=== PATIENT | male | born 1940 | race Caucasian/White ===

== ENCOUNTER → 2017-02-02 | Outpatient (CLI) | payer OTHER | END | disposition home or self-care (01) | LOC: C.LABSPEC 17:01 | PROVIDERS: ATTEND Urology | DX: C67.9 Malignant neoplasm of bladder, unspecified (principal) ==

== ENCOUNTER 2017-05-11 06:01 | Inpatient (IN) | payer OTHER, MEDICARE ==
[~2017-05-11] VITALS: Ht 180.3 cm; Wt 91.1 kg
[2017-05-11] VITALS (9 sets, daily range): BP systolic 132–147; BP diastolic 70–84; PULSE 62–79; TEMP 36.4–36.8; O2SAT 93–99; BMI 30.1
[2017-05-11] MEDS ORDERED: ALBUT/IPRATROP 3MG/0.5MG NEB 3 ML VIAL INH STA (06:13)
[2017-05-11] MEDS ORDERED: DEXTROSE 50% 50 ML SYR IV STA (06:24)
[2017-05-11] MEDS ORDERED: FUROSEMIDE 40 MG/4 ML VIAL IV STA (06:40)
--- NOTE | 2017-05-11 06:48 | EMERGENCY ROOM VISIT NOTE ---
History First contact with patient: 06:08 Chief Complaint: RESPIRATORY PROBLEMS Stated Complaint: UNABLE TO BREATHE,PAIN Nursing Triage Summary: Patient reports cough, shortness of breath, and fever. Patient was admitted to [facility] 1 week ago and diagnosed with Influenza B. Patient was discharged yesterday and was not happy. Patient has had a 'terrible night' . Patient reports he is confused which is not his normal. Patient has left leg amputation above the knee. Patient appears weak and lethargic. family report BSG in 60s at home. pt given milk to increase sugar. Right leg has all toes amputated and reports "they are still healing, but he is so full of fluid it is taking a long time". +3 pitting edema to foot and lower leg. Abdomen hard and distended. History of Present Illness The patient is a 76 year old male who presents to the Emergency Room for evaluation of respiratory distress. Patient with recent 1 week stay in [facility] secondary to Flu B discharged yesterday. notes tired at discharge with SHOB which continued worsening throughout the evening. Now with confusion, weakness, inability to breath and unable to get up. Drove here from [place] as wish second opinion. Patient denies chest pain, nausea, vomiting, abdominal pain, back pain. Long cardiac history with known CHF, multiple previous stents. No CABG. History of multiple abdominal surgeries, left AKA, right toe removals. Notes HTN, DLP, DMII, CKD, Afib (?). Admits poorly controlled DMII with BS 300s yesterday, though 60 at home this morning. No medications prior to arrival. Was reported treated with Tamiflu and IV fluids at [facility] per . Review of Systems See HPI for pertinent positives & negatives. A total of 10 systems reviewed and were otherwise negative. Past Medical/Surgical History Medical Problems: (1) CAD (coronary artery disease) (2) CKD (chronic kidney disease), stage III (3) Congestive heart failure (CHF) (4) Diabetes mellitus, type II (5) GERD (gastroesophageal reflux disease) (6) Gout (7) H/O renal calculi (8) History of MRSA infection (9) HLD (hyperlipidemia) (10) HTN (hypertension) (11) Hypothyroidism (12) Rheumatoid arthritis Surgical Problems: (1) History of appendectomy (2) Hx of cholecystectomy (3) Status post above knee amputation of left lower extremity (4) Status post amputation of toe of right foot (5) Status post lumbar spine surgery for decompression of spinal cord Social History Smoking Status: Former Smoker Current/Historical Medications Scheduled Allopurinol (Allopurinol), 2 TABS PO HS Aspirin (Aspirin Ec), 81 MG PO HS Atorvastatin (Lipitor), 80 MG PO DAILY Bumetanide (Bumetanide), 2 TABS PO BID Carvedilol (Carvedilol), 12.5 MG PO BID Cholecalciferol (Vitamin D3), 1 TAB PO DAILY Clopidogrel (Plavix), 75 MG PO DAILY Docusate Sodium (Docusate Sodium), 100 MG PO BID Fluticasone Propionate (Nasal) (Allergy Nasal [place] 24 Ho), 100 MCG NA QAM Hydralazine Hcl (Apresoline), 25 MG PO TID Insulin Human Isophan/Regular (Novolin 70/30), 80 UNITS SC BID Isosorbide Mononitrate (Isosorbide Mononitrate ER), 30 MG PO QAM Levothyroxine Sodium (Synthroid), 1 TAB PO DAILY Lisinopril (Lisinopril), 2.5 MG PO HS Magnesium Oxide (Mag-Ox), 400 MG PO DAILY Multivitamin (Multivitamin), 1 TAB PO DAILY Nitroglycerin (Nitrostat), 0.4 MG SL PRN Pantoprazole (Protonix), 40 MG PO BID Potassium Ext Rel (Klor-Con), 20 MEQ PO BID Prednisone (Prednisone), 5 MG PO BID Tamsulosin Hcl (Flomax), 0.4 MG PO DAILY Scheduled PRN Acetaminophen (Tylenol), 325 MG PO Q6H PRN for Pain Albuterol Sulf (Proventil 0.083% 2.5MG/3ML), 2.5 MG INH QID PRN for Shortness of Breath Oxycodone/Acetaminophen 5MG/325MG (Percocet 5MG/325MG), 1 TABLET PO Q6H PRN for Pain Physical Exam Vital Signs Date Time Temp Pulse Resp B/P (MAP) Pulse Ox O2 Delivery O2 Flow Rate FiO2 05/11/17 07:23 79 24 144/87 93 BiPAP 05/11/17 06:46 75 19 137/75 97 Room Air 05/11/17 06:39 79 95 35 05/11/17 06:27 90 Room Air 05/11/17 06:20 85 05/11/17 06:16 72 19 171/93 100 Non-Rebreather 15.0 05/11/17 06:14 90 Room Air 05/11/17 06:10 90 Room Air 05/11/17 06:03 37.2 82 26 179/88 93 Room Air Physical Exam GENERAL: Patient is severely ill appearing and in severe distress. HEENT: No acute trauma, normocephalic atraumatic, mucous membranes moist, no nasal congestion, no scleral icterus. NECK: No stridor, no adenopathy, no meningismus, trachea is midline. LUNGS: Dyspneic with diffuse wet crackles. Some mild wheezing at apexes noted. Minimal breath sounds at bases HEART: Regular rate and rhythm. No murmurs, rubs, gallops appreciated. ABDOMEN: Distant bowel sounds. Large abdomen, Soft/Nontender. Pitting edema lower abdomen. BACK: Pitting edema low back. No midline tenderness, no CVA tenderness EXTREMITIES: Edema bilateral hands and pitting edema right leg. Wrapped right foot. Left AKA. No cyanosis NEUROLOGIC: Awake but slow to answer questions and mild confusion, no acute motor or sensory deficits, no focal weakness, cranial nerves grossly intact. SKIN: No rash, no jaundice, no diaphoresis. Medical Decision & Procedures Laboratory Results Test 05/11/17 06:20 05/11/17 06:33 05/11/17 06:34 05/11/17 06:37 Influenza Type A Antigen Neg for Influ A (NEG) Influenza Type B Antigen POS for Influ B (NEG) Immature Granulocyte % (Auto) 0.7 % White Blood Count 9.34 K/uL (4.8-10.8) Red Blood Count 3.59 M/uL (4.7-6.1) Hemoglobin 10.0 g/dL (14.0-18.0) Hematocrit 30.9 % (42-52) Mean Corpuscular Volume 86.1 fL (80-100) Mean Corpuscular Hemoglobin 27.9 pg (25-34) Mean Corpuscular Hemoglobin Concent 32.4 g/dl (32-36) Platelet Count 202 K/uL (130-400) Mean Platelet Volume 10.2 fL (7.4-10.4) Neutrophils (%) (Auto) 64.5 % Lymphocytes (%) (Auto) 20.3 % Monocytes (%) (Auto) 9.9 % Eosinophils (%) (Auto) 4.4 % Basophils (%) (Auto) 0.2 % Neutrophils # (Auto) 6.02 K/uL (1.4-6.5) Lymphocytes # (Auto) 1.90 K/uL (1.2-3.4) Monocytes # (Auto) 0.92 K/uL (0.11-0.59) Eosinophils # (Auto) 0.41 K/uL (0-0.5) Basophils # (Auto) 0.02 K/uL (0-0.2) Immature Granulocyte # (Auto) 0.07 K/uL (0.00-0.02) Total Bilirubin 0.3 mg/dl (0.2-1) Direct Bilirubin < 0.1 mg/dl (0-0.2) Aspartate Amino Transf (AST/SGOT) 50 U/L (15-37) Alanine Aminotransferase (ALT/SGPT) 44 U/L (12-78) Alkaline Phosphatase 74 U/L (45-117) Total Creatine Kinase 499 U/L (39-308) Creatine Kinase MB 4.3 ng/ml (0.5-3.6) Creatine Kinase MB Ratio 0.9 (0-3.0) Pro-B-Type Natriuretic Peptide 2979 pg/ml (0-900) Total Protein 6.5 gm/dl (6.4-8.2) Albumin 2.1 gm/dl (3.4-5.0) Bedside Lactic Acid Venous 1.13 mmol/L (0.90-1.70) Bedside Hemoglobin 9.9 g/dl (14.0-18.0) Bedside Hematocrit 29 % (42-52) Bedside Sodium 137 mEq/L (135-144) Bedside Potassium 4.1 mEq/L (3.3-5.0) Bedside Chloride 104 mEq/L (101-112) Bedside Total CO2 24 mEq/l (24-31) Bedside Blood Urea Nitrogen 37 mg/dl (7-18) Bedside Creatinine 2.1 mg/dl (0.6-1.3) Bedside Glucose (other) 58 mg/dl (70-99) Bedside Ionized Calcium (Dev) 1.12 mmol/l (1.12-1.32) Test 05/11/17 06:42 05/11/17 07:05 05/11/17 07:37 Arterial Blood pH 7.40 (7.35-7.45) Arterial Blood Partial Pressure CO2 40 mmHg (35-46) Arterial Blood Partial Pressure O2 80 mm/Hg (80-95) Arterial Blood HCO3 24 mmol/L (19-24) Arterial Blood Oxygen Saturation 94.4 % (90-95) Arterial Blood Base Excess -0.5 mEq/L (-9-1.8) Arterial Blood Gas Delivery 35% Benja Test POS (POS) Urine Color YELLOW Urine Appearance CLOUDY (CLEAR) Urine pH 5.0 (4.5-7.5) Urine Specific [place] 1.017 (1.000-1.030) Urine Protein 2+ (NEG) Urine Glucose (UA) NEG (NEG) Urine Ketones TRACE (NEG) Urine Occult Blood TRACE (NEG) Urine Nitrite NEG (NEG) Urine Bilirubin NEG (NEG) Urine Urobilinogen NEG (NEG) Urine Leukocyte Esterase MODERATE (NEG) Urine WBC (Auto) >30 /hpf (0-5) Urine RBC (Auto) 0-4 /hpf (0-4) Urine Hyaline Casts (Auto) 1-5 /lpf (0-5) Urine Epithelial Cells (Auto) >30 /lpf (0-5) Urine Bacteria (Auto) NEG (NEG) Urine Renal Epithelial Cells /lpf (0-5) Urine Pathogenic Casts /lpf (0) Prothrombin Time 9.7 SECONDS (9.0-12.0) Prothromb Time International Ratio 0.9 (0.9-1.1) Date/Time Source Procedure Growth Status 05/11/17 07:05 Urine,Catheterized Urine Culture - Final NO GROWTH - LESS THAN 1,000 COLONIES/ML Complete Medications Administered Medications (Trade) Dose Ordered Sig/Jim Route Start Time Stop Time Status Last Admin Dose Admin Albuterol/ Ipratropium (Duoneb) 3 ml NOW STAT INH 05/11/17 06:13 05/11/17 06:14 DC 05/11/17 06:34 3 ML Dextrose (Dextrose 50% 50ML Syringe) 50 ml NOW STAT IV 05/11/17 06:24 05/11/17 06:25 DC 05/11/17 06:45 50 ML Furosemide (Lasix Inj) 40 mg NOW STAT IV 05/11/17 06:40 05/11/17 06:41 DC 05/11/17 06:47 40 MG Oseltamivir Phosphate (Tamiflu Cap) 75 mg NOW STAT PO 05/11/17 07:09 05/11/17 07:11 DC 05/11/17 07:21 75 MG Hydrocodone Bit/ Homatropine Methylb (Hycodan Syrup) 5 ml NOW STAT PO 05/11/17 07:28 05/11/17 07:29 DC 05/11/17 07:40 5 ML Medical Decision Differential: Sepsis, Infectious (UTI/Pneumonia/Meningitis/etc), Metabolic/ Electrolyte Abnormality, Cardiac, Dehydration, Anemia, Hepatic, Endocrine, Toxicologic, Neurologic, amongst other pathologies entertained. 76 yr old acutely ill appearing male arrives in acute respiratory distress and confused. Very poor access but nursing able to obtain left shoulder IV which works well currently. Immediately placed on Bipap given exam of CHF despite OK O2 sats on RA and patient with vast improvement in his breathing and comfort. Confusion improving with IV Dextrose. With CHF findings went ahead with IV lasix. Unfortunately we have somewhat limited history on this patient secondary to never having been her before and his primary care all being out in [place]. Cr 2.1 which from sound of it may be his baseline. Lactic acid wnl, no fevers, and WBC OK thus will hold off on empiric abx for the moment as not clear evidence of sepsis. Suspect much of this is fluid overload , likely secondary to recent admission. Head Trauma GCS Score: 14 Impression Primary Impression: Respiratory failure Additional Impression: Acute CHF Critical Care I have personally spent greater than 45 minutes of critical care time in the direct management of this patient. This was a life/limb threatening event. This includes time spent evaluating patient, direct bedside care, chart review, placing orders, interpretation of diagnostic studies, discussion with consultants, patient, and family members, as well as other required patient management activities. This 45 minutes is in excess of all separately billable procedures. Departure Information Referrals Arturo Hawthorne M.D. (PCP) Patient Instructions My [facility] Problem Qualifiers
[2017-05-11 06:51] LABS: ISTAT CREATININE 2.1 mg/dl (0.6-1.3); ISTAT IONIZED CALCIUM 1.12 mmol/l (1.12-1.32); ISTAT POTASSIUM 4.1 mEq/L (3.3-5.0)
--- NOTE | 2017-05-11 07:00 | DIAGNOSTIC IMAGING REPORT ---
CHEST ONE VIEW PORTABLE CLINICAL HISTORY: Fever and shortness of breath. COMPARISON STUDY: No previous studies for comparison. FINDINGS: Upper abdominal surgical clips are noted. Patient is rotated. No pneumothorax is noted. There is a possible trace right pleural effusion. Minimal bilateral infrahilar opacity likely reflects atelectasis or normal vessels. There is no lobar consolidation. There is mild interstitial thickening. IMPRESSION: 1. Mild nonspecific interstitial thickening. 2. Bilateral infrahilar opacities which likely reflects normal vessels or atelectasis although an infectious process could appear similar. Radiographic follow-up is recommended. Electronically signed by: Angelo De M.D. 05/11/2017 6:58 AM Dictated Date/Time: 05/11/2017 6:55 AM
[2017-05-11 07:08] LABS: BASO % 0.2 %; BASO ABS # 0.02 K/uL (0-0.2); EOS % 4.4 %; EOS ABS # 0.41 K/uL (0-0.5); HEMATOCRIT 30.9 % (42-52); IG# 0.07 K/uL (0.00-0.02); LYMPH % 20.3 %; MEAN CELL VOLUME 86.1 fL (80-100); MEAN CORPUSCULAR HEMOGLOBIN 27.9 pg (25-34); MEAN CORPUSCULAR HGB CONC 32.4 g/dl (32-36); MEAN PLATELET VOLUME 10.2 fL (7.4-10.4); MONO % 9.9 %; MONO ABS # 0.92 K/uL (0.11-0.59); NEUT % 64.5 %; NEUT ABS # 6.02 K/uL (1.4-6.5); NUCLEATED RED BLOOD CELL ABS 0.02 K/uL (0-0); PLATELET COUNT 202 K/uL (130-400); RED CELL DISTRIBUTION WIDTH CV 17.3 % (11.5-14.5); RED CELL DISTRIBUTION WIDTH SD 54.8 fL (36.4-46.3); WHITE BLOOD COUNT 9.34 K/uL (4.8-10.8)
[2017-05-11 07:09] LABS: INFLUENZA B ANTIGEN POS for Influ B (NEG)
[2017-05-11] MEDS ORDERED: OSELTAMIVIR PHOSPHATE 75 MG CAP PO STA (07:09)
[2017-05-11 07:26] LABS: ALBUMIN 2.1 gm/dl (3.4-5.0); ALT/SGPT 44 U/L (12-78); AST/SGOT 50 U/L (15-37); BLOOD UREA NITROGEN 32 mg/dl (7-18); CALCIUM 8.3 mg/dl (8.5-10.1); CARBON DIOXIDE 24 mmol/L (21-32); CREATININE 1.91 mg/dl (0.60-1.40); GLUCOSE 55 mg/dl (70-99); POTASSIUM 3.9 mmol/L (3.5-5.1); SODIUM 136 mmol/L (136-145)
[2017-05-11] MEDS ORDERED: HYDROCODONE/HOMATROPINE SYRUP 5MG/1.5MG 5ML UDP PO STA (07:28)
[2017-05-11 07:35] LABS: ALKALINE PHOSPHATASE 74 U/L (45-117); CKMB 4.3 ng/ml (0.5-3.6); TOTAL PROTEIN 6.5 gm/dl (6.4-8.2)
[2017-05-11 07:53] LABS: INR 0.9 (0.9-1.1)
--- NOTE | 2017-05-11 07:55 | History and Physical ---
History & Physical Date & Time of Service: May 11, 2017 at 07:55 Chief Complaint: short of breath, confused . Primary Care Physician: Arturo Hawthorne M.D. History of Present Illness Source: patient, family 76 YO male followed by Dr. Hawthorne for primary care and Dr. Koenig in [place] for Cardiology. History of ischemic heart disease, CHF, and other problems noted below. Admitted to [facility] about 1 week ago with influenza. Discharged to home yesterday. Very short of breath and confused during the night. Family brought him to ED this morning. BiPAP applied for ventilatory support. History was primarily obtained from pt's because of his condition in the ED. No apparent chest pain. No apparent fever. Occasional cough. No apparent nausea, vomiting, diarrhea. . Past Medical/Surgical History Chronic and Resolved Medical Problems: (1) CAD (coronary artery disease) Permanent Comment: S/p stenting in 2008, 2016. Follow[address] with [address] Michela Koenig in [place] Status: Chronic (2) CKD (chronic kidney disease), stage III Status: Chronic (3) Congestive heart failure (CHF) Status: Chronic (4) Diabetes mellitus, type II Permanent Comment: Hgb a1c of 8.7 on 05/04/17 Status: Chronic (5) GERD (gastroesophageal reflux disease) Status: Chronic (6) Gout Status: Chronic (7) H/O renal calculi Status: Chronic (8) History of MRSA infection Status: Chronic (9) HLD (hyperlipidemia) Status: Chronic (10) HTN (hypertension) Status: Chronic (11) Hypothyroidism Status: Chronic (12) Rheumatoid arthritis Status: Chronic Surgical Problems: (1) History of appendectomy Status: Chronic (2) Hx of cholecystectomy Status: Chronic (3) Status post above knee amputation of left lower extremity Permanent Comment: 2014 Status: Chronic (4) Status post amputation of toe of right foot Permanent Comment: 2015 Status: Chronic (5) Status post lumbar spine surgery for decompression of spinal cord Status: Chronic . Family History Diabetes mellitus MOTHER Social History Smoking Status: Former Smoker Alcohol Use: occasionally Allergies Coded Allergies: Levofloxacin (Verified Allergy, Mild, urticaria, 05/11/17) Cephalexin (Verified Allergy, Unknown, unknown, 05/11/17) Penicillins (Verified Allergy, Unknown, unknown, 05/11/17) Metoprolol (Verified Adverse Reaction, Intermediate, nightmares, 05/11/17) Home Medications Scheduled Allopurinol (Allopurinol), 2 TABS PO HS Aspirin (Aspirin Ec), 81 MG PO HS Atorvastatin (Lipitor), 80 MG PO DAILY Bumetanide (Bumetanide), 2 TABS PO BID Carvedilol (Carvedilol), 12.5 MG PO BID Cholecalciferol (Vitamin D3), 1 TAB PO DAILY Clopidogrel (Plavix), 75 MG PO DAILY Docusate Sodium (Docusate Sodium), 100 MG PO BID Fluticasone Propionate (Nasal) (Allergy Nasal [place] 24 Ho), 100 MCG NA QAM Hydralazine Hcl (Apresoline), 25 MG PO TID Insulin Human Isophan/Regular (Novolin 70/30), 80 UNITS SC BID Isosorbide Mononitrate (Isosorbide Mononitrate ER), 30 MG PO QAM Levothyroxine Sodium (Synthroid), 1 TAB PO DAILY Lisinopril (Lisinopril), 2.5 MG PO HS Magnesium Oxide (Mag-Ox), 400 MG PO DAILY Multivitamin (Multivitamin), 1 TAB PO DAILY Nitroglycerin (Nitrostat), 0.4 MG SL PRN Pantoprazole (Protonix), 40 MG PO BID Potassium Ext Rel (Klor-Con), 20 MEQ PO BID Prednisone (Prednisone), 5 MG PO BID Tamsulosin Hcl (Flomax), 0.4 MG PO DAILY Scheduled PRN Acetaminophen (Tylenol), 325 MG PO Q6H PRN for Pain Albuterol Sulf (Proventil 0.083% 2.5MG/3ML), 2.5 MG INH QID PRN for Shortness of Breath Oxycodone/Acetaminophen 5MG/325MG (Percocet 5MG/325MG), 1 TABLET PO Q6H PRN for Pain Review of Systems Unable to obtain complete / reliable review of systems due to patient's condition. . Physical Exam Vital Signs Date Time Temp Pulse Resp B/P (MAP) Pulse Ox O2 Delivery O2 Flow Rate FiO2 05/11/17 07:23 79 24 144/87 93 BiPAP 05/11/17 06:46 75 19 137/75 97 Room Air 05/11/17 06:39 79 95 35 05/11/17 06:27 90 Room Air 05/11/17 06:20 85 05/11/17 06:16 72 19 171/93 100 Non-Rebreather 15.0 05/11/17 06:14 90 Room Air 05/11/17 06:10 90 Room Air 05/11/17 06:03 37.2 82 26 179/88 93 Room Air General Appearance: + moderate distress, + obese Head: normocephalic, atraumatic Eyes: PERRL, EOMI, sclerae normal ENT: + pertinent finding (no thrush; wearing BiPAP facial mask) Neck: supple, no adenopathy, thyroid normal, trachea midline Respiratory/Chest: + respiratory distress, + rales, + rhonchi, + wheezing Cardiovascular: regular rate, rhythm, + systolic murmur (III/ sys murmur LSB + base), + pertinent finding (neck veins difficult to assess) Abdomen/GI: normal bowel sounds, non tender, soft, no organomegaly Extremities/Musculoskelatal: + pertinent finding (s/p left AKA; s/p right transmet ampuation; 3+ edema RLE with derm findings as noted below) Neurologic/Psych: + disoriented, + pertinent finding (PERRL, EOMI; moves all extremities) Skin: warm/dry, + pertinent finding (erythema and venous stasis ulcers right lower extremity) Lymphatic: no adenopathy (cervical ) Diagnostics Laboratory Results Results Past 24 Hours Test 05/11/17 06:19 05/11/17 06:20 05/11/17 06:33 05/11/17 06:34 Range/Units Bedside Glucose 60 70-99 mg/dl Influenza Type A Antigen Neg for Influ A NEG Influenza Type B Antigen POS for Influ B NEG White Blood Count 9.34 4.8-10.8 K/uL Red Blood Count 3.59 4.7-6.1 M/uL Hemoglobin 10.0 14.0-18.0 g/dL Hematocrit 30.9 42-52 % Mean Corpuscular Volume 86.1 80-100 fL Mean Corpuscular Hemoglobin 27.9 25-34 pg Mean Corpuscular Hemoglobin Concent 32.4 32-36 g/dl Platelet Count 202 130-400 K/uL Mean Platelet Volume 10.2 7.4-10.4 fL Neutrophils (%) (Auto) 64.5 % Lymphocytes (%) (Auto) 20.3 % Monocytes (%) (Auto) 9.9 % Eosinophils (%) (Auto) 4.4 % Basophils (%) (Auto) 0.2 % Neutrophils # (Auto) 6.02 1.4-6.5 K/uL Lymphocytes # (Auto) 1.90 1.2-3.4 K/uL Monocytes # (Auto) 0.92 0.11-0.59 K/uL Eosinophils # (Auto) 0.41 0-0.5 K/uL Basophils # (Auto) 0.02 0-0.2 K/uL RDW Standard Deviation 54.8 36.4-46.3 fL RDW Coefficient of Variation 17.3 11.5-14.5 % Immature Granulocyte % (Auto) 0.7 % Immature Granulocyte # (Auto) 0.07 0.00-0.02 K/uL Nucleated RBC Absolute Count (auto) 0.02 0-0 K/uL Nucleated Red Blood Cells % 0.3 % Sodium Level 136 136-145 mmol/L Potassium Level 3.9 3.5-5.1 mmol/L Chloride Level 105 98-107 mmol/L Carbon Dioxide Level 24 21-32 mmol/L Anion Gap 7.0 3-11 mmol/L Blood Urea Nitrogen 32 7-18 mg/dl Creatinine 1.91 0.60-1.40 mg/dl Est Creatinine Clear Calc Drug Dose 40.5 ml/min Estimated GFR () 39.1 Estimated GFR (Non- 33.8 BUN/Creatinine Ratio 16.8 10-20 Random Glucose 55 70-99 mg/dl Calcium Level 8.3 8.5-10.1 mg/dl Magnesium Level 2.5 1.8-2.4 mg/dl Total Bilirubin 0.3 0.2-1 mg/dl Direct Bilirubin < 0.1 0-0.2 mg/dl Aspartate Amino Transf (AST/SGOT) 50 15-37 U/L Alanine Aminotransferase (ALT/SGPT) 44 12-78 U/L Alkaline Phosphatase 74 45-117 U/L Total Creatine Kinase 499 39-308 U/L Creatine Kinase MB 4.3 0.5-3.6 ng/ml Creatine Kinase MB Ratio 0.9 0-3.0 Troponin I 0.060 0-0.045 ng/ml Pro-B-Type Natriuretic Peptide 2979 0-900 pg/ml Total Protein 6.5 6.4-8.2 gm/dl Albumin 2.1 3.4-5.0 gm/dl Bedside Lactic Acid Venous 1.13 0.90-1.70 mmol/L Test 05/11/17 06:37 05/11/17 06:42 05/11/17 07:05 05/11/17 07:37 Range/Units Bedside Hemoglobin 9.9 14.0-18.0 g/dl Bedside Hematocrit 29 42-52 % Bedside Sodium 137 135-144 mEq/L Bedside Potassium 4.1 3.3-5.0 mEq/L Bedside Chloride 104 101-112 mEq/L Bedside Total CO2 24 24-31 mEq/l Anion Gap 14.0 16-25 mmol/L Bedside Blood Urea Nitrogen 37 7-18 mg/dl Bedside Creatinine 2.1 0.6-1.3 mg/dl Bedside Glucose (other) 58 70-99 mg/dl Bedside Ionized Calcium (Dev) 1.12 1.12-1.32 mmol/l Arterial Blood pH 7.40 7.35-7.45 Arterial Blood Partial Pressure CO2 40 35-46 mmHg Arterial Blood Partial Pressure O2 80 80-95 mm/Hg Arterial Blood HCO3 24 19-24 mmol/L Arterial Blood Oxygen Saturation 94.4 90-95 % Arterial Blood Base Excess -0.5 -9-1.8 mEq/L Arterial Blood Gas Delivery 35% Benja Test POS POS Urine Color YELLOW Urine Appearance CLOUDY CLEAR Urine pH 5.0 4.5-7.5 Urine Specific [place] 1.017 1.000-1.030 Urine Protein 2+ NEG Urine Glucose (UA) NEG NEG Urine Ketones TRACE NEG Urine Occult Blood TRACE NEG Urine Nitrite NEG NEG Urine Bilirubin NEG NEG Urine Urobilinogen NEG NEG Urine Leukocyte Esterase MODERATE NEG Urine WBC (Auto) >30 0-5 /hpf Urine RBC (Auto) 0-4 0-4 /hpf Urine Hyaline Casts (Auto) 1-5 0-5 /lpf Urine Epithelial Cells (Auto) >30 0-5 /lpf Urine Bacteria (Auto) NEG NEG Urine Renal Epithelial Cells 0-5 /lpf Urine Pathogenic Casts 0 /lpf Prothrombin Time 9.7 9.0-12.0 SECONDS Prothromb Time International Ratio 0.9 0.9-1.1 Microbiology Results 05/11/17 Blood Culture, Received Pending 05/11/17 Blood Culture, Received Pending 05/11/17 Urine Culture, Received Pending Diagnostic Radiology Chest x-ray reviewed by the undersigned: cardiomegaly, pulmonary edema, no focal infiltrates . EKG EKG performed at 06:L10 reviewed and demonstrated probably 2nd degree heart block (Mobitz type 1) at 80 / minute, baseline artifact, no acute ST changes. . Impression Assessment and Plan CHF / PULMONARY EDEMA Exam and chest x-ray consistent with CHF. Check echo. Diurese. CORONARY ARTERY DISEASE History of ischemic heart disease, s/p coronary stents. No apparent anginal symptoms. EKG as noted above. Serum troponin slightly elevated (0.060). Troponin elevation may be secondary to CHF or pneumonia. Check serial troponins. Check echo. Continue aspirin, clopidogrel, carvedilol, nitrates, statin. ARRHYTHMIA EKG has baseline artifact, possible Mobitz type 1 heart block. Monitor on telemetry. Continue carvedilol with caution. Check f/u EKG. HYPERTENSION Hemodynamically stable. Continue carvedilol, lisinopril, hydralazine, nitrates. INFLUENZA B Diagnosed at [facility]. Awaiting records to review treatment there. CKD III History of CKD III. Serum creatinine = 1.91. Follow. DM TYPE 2 HIstory of DM type 2 on insulin 70/30. Random blood sugar in ED 60. Check Hgb A1C. Lantus / NovoLog per protocol. HYPOTHYROIDISM Check TSH. Continue levothyroxine.l DYSLIPIDEMIA Continue atorvastatin. GOUT Continue allopurinol. RA / CHRONIC STEROID THERAPY On prednisone for many years. Apparently instructed to stop prednisone when discharged yesterday. IV hydrocortisone x 1, then resume usual dose of prednisone. Additional hydrocortisone PRN for hemodynamic instability. VENOUS STASIS ULCERS RLE No apparent cellulitis. Local care / dressing changes. HISTORY MRSA Contact precautions. INCOMPLETE DATA Records from [facility] requested. RESUSCITATION STATUS Discussed with pt's . Patient would like resuscitation attempted in the event of a cardiopulmonary arrest if there is a reasonable chance of a meaningful recovery, but does not want prolonged extraordinary measures if prognosis is poor. Therefore, code status = "Level 1" (full resuscitation). VTE PROPHYLAXIS SQ enoxaparin. DISPOSITION To be determined. Medical follow-up with Dr. Vega. Cardiology follow-up with Dr. Koenig in [place]. . Resuscitation Status FULL RESUSCITATION VTE Prophylaxis Risk Level: Moderate Given or contraindicated: Enoxaparin (Lovenox)SQ
[2017-05-11] MEDS ORDERED: ACETAMINOPHEN 325 MG TAB PO PRN (08:00)
[2017-05-11] MEDS ORDERED: NITROGLYCERIN 0.4 MG SL PER TAB CHARGE SL PRN (08:00)
[2017-05-11] MEDS ORDERED: ALBINS/ INH (08:27)
[2017-05-11] MEDS ORDERED: LSN25 PO (08:27)
[2017-05-11] MEDS ORDERED: ACET-1311 PO (08:27)
[2017-05-11] MEDS ORDERED: PRED-301 PO (09:00)
[2017-05-11] MEDS ORDERED: LEVO25TA PO (09:00)
[2017-05-11] MEDS ORDERED: CLOP1TAB15 PO (09:00)
[2017-05-11] MEDS ORDERED: MULT-506 PO (09:00)
[2017-05-11] MEDS ORDERED: PANT40TA PO (09:00)
[2017-05-11] MEDS ORDERED: INSU70IN2 SC (09:00)
[2017-05-11] MEDS ORDERED: OXYC-57 PO (09:00)
[2017-05-11] MEDS ORDERED: TAMS0.4C38 PO (09:00)
[2017-05-11] MEDS ORDERED: CRG125 PO (09:00)
[2017-05-11] MEDS ORDERED: NTRGSL/4 SL (09:00)
[2017-05-11] MEDS ORDERED: FLUT50SP45 (09:00)
[2017-05-11] MEDS ORDERED: MAGN400T5 PO (09:00)
[2017-05-11] MEDS ORDERED: ONDA4TAB46 PO (09:00)
[2017-05-11] MEDS ORDERED: APR25 PO (09:00)
[2017-05-11] MEDS ORDERED: IMDSR/30 PO (09:00)
[2017-05-11] MEDS ORDERED: ATOR-26 PO (09:00)
[2017-05-11] MEDS ORDERED: CHOL20007 PO (09:00)
[2017-05-11] MEDS ORDERED: DOCU1TAB6 PO (09:00)
[2017-05-11] MEDS ORDERED: ASPI81TA28 PO (09:00)
[2017-05-11] MEDS ORDERED: SYN50 PO (09:35)
[2017-05-11] MEDS ORDERED: BMX1 PO (09:35)
[2017-05-11] MEDS ORDERED: CHOL1000 PO (09:35)
[2017-05-11] MEDS ORDERED: ALL100 PO (09:35)
[2017-05-11] MEDS ORDERED: GLUCOSE 10 TABS/TUBE PO PRN (09:45)
[2017-05-11] MEDS ORDERED: GLUCAGON FOR INJ 1 MG VIAL SQ PRN (09:45)
[2017-05-11] MEDS ORDERED: GLUCOSE 40% GEL 15 GM TUBE PO PRN (09:45)
[2017-05-11] MEDS ORDERED: DEXTROSE 50% 50 ML SYR IV PRN (09:45)
[2017-05-11] MEDS ORDERED: INFLUENZA VACCINE HIGH DOSE 65+ 0.5 ML SYR IM. ONE (10:15)
[2017-05-11] MEDS ORDERED: INFLUENZA ADMINISTRATION CHARGE ONE (10:15)
[2017-05-11] MEDS ORDERED: POTA20TA16 PO (10:30)
--- NOTE | 2017-05-11 12:03 | DIAGNOSTIC IMAGING REPORT ---
CHEST ONE VIEW PORTABLE HISTORY: picc placement COMPARISON: Chest 05/11 at 18. FINDINGS: The tip of the right PICC is curled within a branch of the right axillary vein. This should be repositioned. There are low lung volumes. The heart is mildly enlarged. No pneumothorax. No pleural effusions. Mild diffuse interstitial thickening, unchanged. No new focal lung consolidations. IMPRESSION: The right PICC is curled within a branch of the right axillary vein. This should be repositioned. Electronically signed by: Cory Li M.D. 05/11/2017 12:02 PM Dictated Date/Time: 05/11/2017 12:00 PM
[2017-05-11] MEDS ORDERED: LEVALBUTEROL 0.63MG/3 ML NEB INH PRN (13:00)
[2017-05-11] MEDS ORDERED: HYDROCORTISONE IV 50 MG in SYRINGE 0 ML IV ONE (13:00)
[2017-05-11] MEDS ORDERED: PERFLUTREN LIPID MICROSPHERE (DEFINITY) IV ONE (14:23)
[2017-05-11] MEDS: LEVALBUTEROL 1.25MG/3ML NEB INH SCH ×2 (14:59→20:12)
--- NOTE | 2017-05-11 16:30 | ECHOCARDIOGRAM REPORT ---
*NOTICE TO RECEIVING DEMOCRAT AGENCY This information is strictly Confidential and protected under [place] law. [place] law prohibits you from making any further disclosure of this information unless further disclosure is expressly permitted by the written consent of the person to whom it pertains or is authorized by law. A general authorization for the release of medical or other information is not sufficient for this purpose. Hospital accepts no responsibility if the information is made available to any other person, INCLUDING THE PATIENT. Interpretation Summary * Name: OZZEI CHA Study Date: 05/11/2017 01:34 PM BP: 124/80 mmHg * Patient Location: .MSICU\S\E110\S\1 HR: 73 * : 1940 (M/d/yyyy) Gender: Male Height: 71 in * Age: 76 yrs Ethnicity: CA Weight: 216 lb * Ordering Physician: Mohamud Aceves * Referring Physician: Self, Referred * Performed By: Uziel Caruso RCS * * Reason For Study: CHF * BSA: 2.2 m2 * The study was technically limited. * The study was technically difficult. * -- Conclusions -- * Ejection Fraction = 55-60%. * There is mild concentric left ventricular hypertrophy. * The base and mid inferior wall is hypokinetic. * The aortic valve is poorly visualized and moderately calcified. * Moderate to severe valvular aortic stenosis. * There is mild mitral regurgitation. * There is mild tricuspid regurgitation. Procedure Details * A complete two-dimensional transthoracic echocardiogram was performed (2D, M-mode, Doppler and color flow Doppler). * There were technical limitations due to patient'spoor positioning * A contrast injection of Definity was performed to improve assessment of LV function. * Contrast was injected into an intravenous site in the right arm. * One vial of Definity ultrasound contrast was diluted in normal saline to a total volume of 10 ml. A total of '1' ml of solution was administered during imaging. * Lot # [id number] of Definity utilized for procedure. * Expiration date . * The attending nurse who injected the contrast agent was Rena Balderas RN. Left Ventricle * The left ventricle is normal in size. * There is no thrombus. * There is mild concentric left ventricular hypertrophy. * Left ventricular systolic function is normal. * Ejection Fraction = 55-60%. * The base and mid inferior wall is hypokinetic. Right Ventricle * The right ventricle is normal size. * The right ventricular systolic function is normal as assessed by tricuspid annular plane systolic excursion (TAPSE) (normal >1.5 cm). Atria * The left atrium is moderately dilated. * Right atrial size is normal. * There is no evidence of atrial septal defect, but resolution does not allow assessment for a patent foramen ovale. Mitral Valve * The mitral valve is normal. * There is no mitral valve stenosis. * There is mild mitral regurgitation. Tricuspid Valve * The tricuspid valve is normal. * There is no tricuspid stenosis. * There is mild tricuspid regurgitation. * Doppler findings do not suggest pulmonary hypertension. Aortic Valve * The aortic valve is poorly visualized and moderately calcified. * Moderate to severe valvular aortic stenosis. * There is no significant aortic regurgitation. Pulmonic Valve * The pulmonary valve is not well seen, but the Doppler examination is normal without significant regurgitation or stenosis. Great Vessels * The aortic root and proximal ascending aorta are normal sized. Pericardium/Pleural * There is no pericardial effusion. Great Vessels * Normal inferior vena cava diameter and respiratory variation suggests normal central venous pressure. Left Ventricular Diastolic Function * Diastolic dysfunction, Grade II (pseudonormalization pattern). MMode 2D Measurements and Calculations IVSd 1.2 cm IVSs 1.5 cm LVIDd 6.2 cm LVIDs 3.1 cm LVPWd 1.2 cm LVPWs 1.5 cm IVS/LVPW 1.0 FS 50.0 % EDV(Teich) 195.6 ml ESV(Teich) 38.2 ml EF(Teich) 80.5 % EDV(cubed) 241.0 ml ESV(cubed) 30.0 ml EF(cubed) 87.5 % % IVS thick 31.3 % % LVPW thick 29.6 % LV mass(C)d 320.4 grams LV mass(C)dI 147.0 grams/m\S\2 LV mass(C)s 168.9 grams LV mass(C)sI 77.5 grams/m\S\2 SV(Teich) 157.4 ml SI(Teich) 72.3 ml/m\S\2 SV(cubed) 210.9 ml SI(cubed) 96.8 ml/m\S\2 Ao root diam 3.7 cm Ao root area 10.5 cm\S\2 LA dimension 5.0 cm asc Aorta Diam 3.5 cm LA/Ao 1.4 LVOT diam 2.2 cm LVOT area 4.0 cm\S\2 EDV(MOD-sp4) 150.0 ml ESV(MOD-sp4) 82.0 ml EF(MOD-sp4) 45.3 % LVAd ap2 45.6 cm\S\2 LVLd ap2 9.6 cm EDV(MOD-sp2) 179.9 ml EDV(sp2-el) 184.5 ml LVAs ap2 28.4 cm\S\2 LVLs ap2 8.4 cm ESV(MOD-sp2) 79.4 ml ESV(sp2-el) 81.1 ml EF(MOD-sp2) 55.9 % EF(sp2-el) 56.0 % SV(MOD-sp4) 68.0 ml SI(MOD-sp4) 31.2 ml/m\S\2 SV(MOD-sp2) 100.5 ml SI(MOD-sp2) 46.1 ml/m\S\2 SV(sp2-el) 103.4 ml SI(sp2-el) 47.4 ml/m\S\2 Doppler Measurements and Calculations MV E max jeff 96.9 cm/sec MV A max jeff 85.9 cm/sec MV E/A 1.1 MV P1/2t max jeff 105.7 cm/sec MV P1/2t 75.5 msec MVA(P1/2t) 2.9 cm\S\2 MV dec slope 410.0 cm/sec\S\2 MV dec time 0.23 sec Ao V2 max 334.6 cm/sec Ao max PG 44.8 mmHg Ao max PG (full) 41.7 mmHg Ao V2 mean 231.4 cm/sec Ao mean PG 25.0 mmHg Ao mean PG (full) 23.3 mmHg Ao V2 VTI 71.1 cm BAILEY(I,A) 1.2 cm\S\2 BAILEY(I,D) 1.2 cm\S\2 BAILEY(V,A) 1.1 cm\S\2 BAILEY(V,D) 1.1 cm\S\2 LV V1 max PG 3.2 mmHg LV V1 mean PG 1.7 mmHg LV V1 max 89.1 cm/sec LV V1 mean 58.7 cm/sec LV V1 VTI 20.6 cm SV(Ao) 744.8 ml SI(Ao) 341.8 ml/m\S\2 SV(LVOT) 81.9 ml SI(LVOT) 37.6 ml/m\S\2 PA V2 max 161.8 cm/sec PA max PG 11.0 mmHg TR max jeff 252.0 cm/sec
[2017-05-11] MEDS: INSULIN ASPART 100 UNITS/ML 3 ML PEN SC SCH ×2 (17:23→21:22)
[2017-05-11 19:06] LABS: CALCIUM 8.1 mg/dl (8.5-10.1); CREATININE 1.74 mg/dl (0.60-1.40); POTASSIUM 4.7 mmol/L (3.5-5.1)
[2017-05-11] MEDS ORDERED: FUROSEMIDE INJ 40 MG in SYRINGE 0 ML IV ONE (19:45)
[2017-05-11] MEDS: PANTOprazole SOD 40 MG TAB PO SCH (20:07)
[2017-05-11] MEDS: POTASSIUM CHLORIDE 20 MEQ TABCR PO SCH (20:08)
[2017-05-11] MEDS: ALLOPURINOL 100 MG TAB PO SCH (20:08)
[2017-05-11] MEDS: LISINOPRIL 2.5 MG TAB PO SCH (20:08)
[2017-05-11] MEDS: ASPIRIN 81 MG ECTAB PO SCH (20:09)
[2017-05-11] MEDS: CARVEDILOL 12.5 MG TAB PO SCH (20:09)
[2017-05-11] MEDS: DOCUSATE SODIUM 100 MG CAP PO SCH (20:09)
[2017-05-11] MEDS: ENOXAPARIN 40 MG/0.4 ML SYR SC SCH (21:23)
[2017-05-11] MEDS: INSULIN GLARGINE SOLOSTAR 100 UNITS/ML 3 ML PEN SC SCH (21:23)
[2017-05-12] VITALS (10 sets, daily range): BP systolic 103–138; BP diastolic 57–72; PULSE 59–71; TEMP 36.5–37.1; O2SAT 93–97; Ht 180.3 cm; Wt 91.1 kg
[2017-05-12] MEDS ORDERED: FUROSEMIDE INJ 80 MG in SYRINGE 0 ML IV ONE ×2 (00:45→11:00)
[2017-05-12] MEDS: LEVALBUTEROL 1.25MG/3ML NEB INH SCH ×4 (02:18→18:55)
[2017-05-12 06:09] LABS: HEMATOCRIT 28.4 % (42-52); HEMOGLOBIN 9.2 g/dL (14.0-18.0); MEAN CELL VOLUME 86.1 fL (80-100); MEAN CORPUSCULAR HEMOGLOBIN 27.9 pg (25-34); MEAN CORPUSCULAR HGB CONC 32.4 g/dl (32-36); MEAN PLATELET VOLUME 10.2 fL (7.4-10.4); NUCLEATED RED BLOOD CELL ABS 0.02 K/uL (0-0); PLATELET COUNT 194 K/uL (130-400); RED CELL DISTRIBUTION WIDTH CV 17.2 % (11.5-14.5); RED CELL DISTRIBUTION WIDTH SD 54.4 fL (36.4-46.3); WHITE BLOOD COUNT 7.69 K/uL (4.8-10.8)
[2017-05-12] MEDS: LEVOTHYROXINE 50 MCG TAB PO SCH (06:36)
[2017-05-12 06:46] LABS: CALCIUM 7.9 mg/dl (8.5-10.1); CREATININE 1.74 mg/dl (0.60-1.40); POTASSIUM 4.7 mmol/L (3.5-5.1)
--- NOTE | 2017-05-12 07:50 | DIAGNOSTIC IMAGING REPORT ---
CHEST ONE VIEW PORTABLE CLINICAL HISTORY: CHF dyspnea COMPARISON STUDY: 05/11/2017 FINDINGS: Comparison made to prior study 05/11/2017. Findings of congestive failure and superimposed inflammatory change left retrocardiac region are slightly improved. Diaphragms are slightly improved visibility. There has been removal of the PICC catheter in the right axillary vein. IMPRESSION: Slight improvement in the appearance of the chest with persistent findings of mild congestive failure and resolving left basilar minimal infiltrative change The above report was generated using voice recognition software. It may contain grammatical, syntax or spelling errors. Electronically signed by: Van Moreno M.D. 05/12/2017 7:49 AM Dictated Date/Time: 05/12/2017 7:40 AM
[2017-05-12] MEDS: DOCUSATE SODIUM 100 MG CAP PO SCH ×2 (08:17→20:33)
[2017-05-12] MEDS: POTASSIUM CHLORIDE 20 MEQ TABCR PO SCH ×2 (08:18→20:34)
[2017-05-12] MEDS: TAMSULOSIN HCL 0.4 MG CAP PO SCH (08:18)
[2017-05-12] MEDS: CARVEDILOL 12.5 MG TAB PO SCH ×2 (08:18→20:33)
[2017-05-12] MEDS: MAGNESIUM OXIDE 400 MG TAB PO SCH (08:19)
[2017-05-12] MEDS: ATORVASTATIN 40 MG TAB PO SCH (08:19)
[2017-05-12] MEDS: CLOPIDOGREL BISULFATE 75 MG TAB PO SCH (08:19)
[2017-05-12] MEDS: FLUTICASONE PROPIONATE NA SPR 16 GM BTL SCH (08:21)
[2017-05-12] MEDS: INSULIN ASPART 100 UNITS/ML 3 ML PEN SC SCH ×4 (08:28→20:39)
[2017-05-12] MEDS: INSULIN GLARGINE SOLOSTAR 100 UNITS/ML 3 ML PEN SC SCH ×2 (08:29→20:41)
[2017-05-12] MEDS: NITROGLYCERIN 2% OINTMENT 30GM TUBE EXT SCH ×4 (08:30→20:45)
[2017-05-12] MEDS: PANTOprazole SOD 40 MG TAB PO SCH ×2 (08:32→20:35)
[2017-05-12] MEDS: OXYCODONE/ACETAMINOPHEN 5-325 TAB PO PRN ×2 (08:34→20:37)
--- NOTE | 2017-05-12 09:09 | Clinical Documentation Query ---
EFRAÍN Andre : CLINICAL DOCUMENTATION QUERIES QUERY 1 OF 2 Patient admitted for evaluation of respiratory distress. Documentation includes a known history of CHF, not otherwise specified. Echocardiogram demonstrated an LVEF of 55-60%. As appropriate, please explicitly state the acuity and type of CHF experienced by your patient. Thank you. In your clinical opinion is this patient being managed for: ABDOMEN 2VIEW W/PA CHEST RTN CLINICAL HISTORY: abdominal distended/Nausea pain COMPARISON STUDY: 05/13/2017 FINDINGS: Increased pulmonary vasculature. Diaphragms are smooth. Heart is top limits normal in size. Bowel pattern is nonobstructive. Degenerative changes of the lumbar spine as well as hips bilaterally. IMPRESSION: Nonobstructive bowel pattern. 2. Developing congestive heart failure The above report was generated using voice recognition software. It may contain grammatical, syntax or spelling errors. Electronically signed by: Van Moreno M.D. (x) Acute on chronic diastolic CHF ( ) Not Agree ( ) Other explanation of clinical findings (Please Explain) ( ) Unable to determine (Please Define) ( ) Need to Discuss The medical record reflects the following clinical findings, treatment, and risk factors. Clinical Indicators: Shortness of breath, hypoxemia, tachypnea, diffuse crackles, wheezing, respiratory distress Treatment: Supplemental O2, IV Lasix, labs, Bi-PAP Risk Factors: Age, infection, influenza QUERY 2 OF 2 Patient presented with confusion, weakness, and lethargy. Assessment included "Awake but slow to answer questions and mild confusion" and most notably, "Confusion improving with IV Dextrose". POC and serum glucose on admission of 55/58/60 mg/dl. As appropriate, consider capture of this clinical information as suggested below. Thank you. In your clinical opinion is this patient being managed for: ( ) Metabolic encephalopathy secondary to influenza and/or hypoglycemia, POA, resolved ( ) Not Agree ( ) Other explanation of clinical findings (Please Explain) ( ) Unable to determine (Please Define) ( ) Need to Discuss The medical record reflects the following clinical findings, treatment, and risk factors. Clinical Indicators: As above Treatment: IVF, labs, treatment of hypoglycemia and infection Risk Factors: Hypoglycemia, influenza Please clarify and document your clinical opinion in the progress notes and discharge summary. Terms such as "probable", "suspected", "likely", "questionable", "possible", or "still to be ruled out" are acceptable. IF IN AGREEMENT, YOU MUST DOCUMENT ABOVE DIAGNOSTIC STATEMENT IN DAILY PROGRESS NOTES AND DISCHARGE SUMMARY. This document is not part of the patient's record. Thank You, Mario Suarez, RN [phone]
[2017-05-12 09:12] LABS: HEMOGLOBIN A1C 8.7 % (4.5-5.6)
--- NOTE | 2017-05-12 11:08 | Progress Note ---
Medicine Progress Note Date & Time of Visit: May 12, 2017 at 10:16. Subjective Pt was seen and examined Lying in bed with no distress Pt said that he is feeling better today He said that he did not remember much from yesterday He said that he is breathing better Denies any chest pain, palpitation, dizziness and fever Objective Last 8 Hrs Date Time Temp Pulse Resp B/P (MAP) Pulse Ox O2 Delivery O2 Flow Rate FiO2 05/12/17 04:00 Nasal Cannula 2.0 05/12/17 03:55 36.5 71 16 128/69 (88) 93 Nasal Cannula 2.0 05/12/17 02:18 65 21 96 Nasal Cannula 2.0 35 Physical Exam: General- No acute distress Head- atraumatic Eyes- PERRL, EOMI ENT- oropharynx clear Neck- supple, no JVD Lungs- clear to auscultation Heart- regular rhythm; +murmur Abdomen- normal bowel sounds, soft Extremities- No calf tenderness, S/p Left AKA, +RLE edema Neuro- alert, oriented x 3; PERRL, EOMI Skin- warm & dry Laboratory Results: Last 24 Hours Test 05/11/17 12:28 05/11/17 12:40 05/11/17 15:48 05/11/17 18:26 Bedside Glucose 115 mg/dl 162 mg/dl Troponin I 0.055 ng/ml 0.043 ng/ml Sodium Level 135 mmol/L Potassium Level 4.7 mmol/L Chloride Level 104 mmol/L Carbon Dioxide Level 21 mmol/L Anion Gap 10.0 mmol/L Blood Urea Nitrogen 29 mg/dl Creatinine 1.74 mg/dl Est Creatinine Clear Calc Drug Dose 44.4 ml/min Estimated GFR () 43.8 Estimated GFR (Non- 37.8 BUN/Creatinine Ratio 16.9 Random Glucose 190 mg/dl Calcium Level 8.1 mg/dl Magnesium Level 2.2 mg/dl Test 05/11/17 21:16 05/12/17 01:03 05/12/17 05:41 Bedside Glucose 211 mg/dl Magnesium Level 2.2 mg/dl White Blood Count 7.69 K/uL Red Blood Count 3.30 M/uL Hemoglobin 9.2 g/dL Hematocrit 28.4 % Mean Corpuscular Volume 86.1 fL Mean Corpuscular Hemoglobin 27.9 pg Mean Corpuscular Hemoglobin Concent 32.4 g/dl RDW Standard Deviation 54.4 fL RDW Coefficient of Variation 17.2 % Platelet Count 194 K/uL Mean Platelet Volume 10.2 fL Nucleated RBC Absolute Count (auto) 0.02 K/uL Nucleated Red Blood Cells % 0.3 % Sodium Level 138 mmol/L Potassium Level 4.7 mmol/L Chloride Level 105 mmol/L Carbon Dioxide Level 21 mmol/L Anion Gap 12.0 mmol/L Blood Urea Nitrogen 34 mg/dl Creatinine 1.74 mg/dl Est Creatinine Clear Calc Drug Dose 45.5 ml/min Estimated GFR () 43.8 Estimated GFR (Non- 37.8 BUN/Creatinine Ratio 19.4 Random Glucose 241 mg/dl Estimated Average Glucose 203 mg/dl Hemoglobin A1c 8.7 % Calcium Level 7.9 mg/dl Triglycerides Level 205 mg/dl Cholesterol Level 136 mg/dl HDL Cholesterol 22 mg/dl LDL Cholesterol, Calculated 73 mg/dl VLDL Cholesterol, Calculated 41 mg/dl Cholesterol/HDL Ratio 6.2 Date/Time Source Procedure Growth Status 05/11/17 12:30 Nasal MRSA DNA Surveillance Screen - Final Specimen Negative for MRSA by DNA Probe Complete Assessment & Plan CHF / PULMONARY EDEMA Present with SOB on admission Was recently admitted in [place] for weakness and dehydration. His Bumex was held due to dehydration and received IVF. Chest x-ray on admission consistent with CHF. Elevated pro -BNP Received IV Lasix (about 120mg in the last 18hrs. Clinically improved significantly Consider additional lasix Cardiology consult ECHO showed * Ejection Fraction = 55-60%. * There is mild concentric left ventricular hypertrophy. * The base and mid inferior wall is hypokinetic. * The aortic valve is poorly visualized and moderately calcified. * Moderate to severe valvular aortic stenosis. * There is mild mitral regurgitation. * There is mild tricuspid regurgitation. CORONARY ARTERY DISEASE Denies any chest pain Serum troponin peak to 0.060 now trending down to normal, possible related to CHF Recent ECHO showed base and mid inferior wall is hypokinetic. ECHO done at [place] last weeks showed normal left ventricle wall motion and wall thickness with normal EF Continue aspirin, clopidogrel, carvedilol, nitrates, statin. Continue monitor in tele ARRHYTHMIA EKG showed possible Mobitz type 1 heart block. Continue monitor on telemetry. On carvedilol Will discuss EKG finding with Cardiology HYPERTENSION BP stable Continue carvedilol, lisinopril, hydralazine, nitrates. INFLUENZA B Was treating at [place] last week with Tamiflu Continue droplet precaution Stable CKD III Creatine baseline as per discharge Summary from [place] btw 1.8 to 2.2 I called his PCP office his last creatine back in February was 1.5 Creatine on admission 1.91 that improved today to 1.7 Continue avoiding nephrotoxic agents WEAKNESS Due to acute illness Urine cx and blood cx pending PT/OT Fall precaution DM TYPE 2 Recent Hba1c 8.7 On insulin sliding scale and lantus Continue monitor BS HYPOTHYROIDISM Continue levothyroxine. DYSLIPIDEMIA LDL 73 Continue atorvastatin. GOUT Continue allopurinol. RA / CHRONIC STEROID THERAPY Has been on chronic prednisone for many years. Apparently instructed to stop prednisone when discharged at [place] Received Hydrocortisone x1 Continue prednisone VENOUS STASIS ULCERS RLE No apparent cellulitis. Local care / dressing changes. HISTORY MRSA Contact precautions. RESUSCITATION STATUS FULL CODE VTE PROPHYLAXIS SQ enoxaparin. DISPOSITION Will discharge once medically stable Follow up with PCP at [facility]. Current Inpatient Medications: Current Inpatient Medications Medications (Trade) Dose Ordered Sig/Jim Route Start Time Stop Time Status Last Admin Dose Admin Enoxaparin Sodium (Lovenox Inj) 40 mg Q24H SC 05/11/17 22:00 06/10/17 21:59 05/11/17 21:23 40 MG Acetaminophen (Tylenol Tab) 650 mg Q4H PRN PO 05/11/17 08:00 06/10/17 07:59 Nitroglycerin (Nitrostat Tab) 0.4 mg UD PRN SL 05/11/17 08:00 06/10/17 07:59 Insulin Glargine (Lantus Solostar Pen) For BSG <110, hold yao... Q12 SC 05/11/17 21:00 06/10/17 20:59 05/12/17 08:29 17 UNITS Insulin Aspart (novoLOG ASPART) SLIDING SCALE If C... ACHS SC 05/11/17 16:00 06/10/17 15:59 05/12/17 08:28 5 UNITS Glucose (Glucose 40% Gel) 15-30 GRAMS 15 GRAMS... UD PRN PO 05/11/17 09:45 06/10/17 09:44 Glucose (Glucose Chew Tab) 4-8 Tablets 4 Tabl... UD PRN PO 05/11/17 09:45 06/10/17 09:44 Dextrose (Dextrose 50% 50ML Syringe) 25-50ML OF 50% DW IV FOR... UD PRN IV 05/11/17 09:45 06/10/17 09:44 Glucagon (Glucagon Inj) 1 mg UD PRN SQ 05/11/17 09:45 06/10/17 09:44 Allopurinol (Zyloprim Tab) 200 mg HS PO 05/11/17 21:00 06/10/17 20:59 05/11/17 20:08 200 MG Aspirin (Ecotrin Tab) 81 mg HS PO 05/11/17 21:00 06/10/17 20:59 05/11/17 20:09 81 MG Atorvastatin Calcium (Lipitor Tab) 80 mg DAILY PO 05/12/17 09:00 06/11/17 08:59 05/12/17 08:19 80 MG Carvedilol (Coreg Tab) 12.5 mg BID PO 05/11/17 21:00 06/10/17 20:59 05/12/17 08:18 12.5 MG Clopidogrel Bisulfate (plAVix TAB) 75 mg DAILY PO 05/12/17 09:00 06/11/17 08:59 05/12/17 08:19 75 MG Fluticasone Propionate (Flonase Nasal [place]) 1 sprays QAM NA 05/12/17 09:00 06/11/17 08:59 05/12/17 08:21 1 SPRAYS Hydralazine HCl (Apresoline Tab) 25 mg TID PO 05/11/17 14:00 06/10/17 13:59 05/12/17 08:17 25 MG Levothyroxine Sodium (Synthroid Tab) 50 mcg DAILYBB PO 05/12/17 06:00 06/11/17 05:59 05/12/17 06:36 50 MCG Lisinopril (Zestril Tab) 2.5 mg HS PO 05/11/17 21:00 06/10/17 20:59 05/11/17 20:08 2.5 MG Magnesium Oxide (Mag-Ox Tab) 400 mg DAILY PO 05/12/17 09:00 06/11/17 08:59 2/13/18 08:19 400 MG Oxycodone/ Acetaminophen (Percocet 5-325mg Tab) 1 tab Q6H PRN PO 05/11/17 13:00 05/25/17 12:59 05/12/17 08:34 1 TAB Pantoprazole Sodium (Protonix Tab) 40 mg BID PO 05/11/17 21:00 06/10/17 20:59 05/12/17 08:32 40 MG Potassium Chloride (Klor-Con Tab) 20 meq BID PO 05/11/17 21:00 06/10/17 20:59 05/12/17 08:18 20 MEQ Prednisone (PredniSONE TAB) 5 mg BID PO 05/11/17 21:00 06/10/17 20:59 05/12/17 08:19 5 MG Tamsulosin HCl (Flomax Cap) 0.4 mg DAILY PO 05/12/17 09:00 06/11/17 08:59 05/12/17 08:18 0.4 MG Docusate Sodium (coLACE CAP) 100 mg BID PO 05/11/17 21:00 06/10/17 20:59 05/12/17 08:17 100 MG Levalbuterol (Xopenex 1.25MG/ 3ML Neb) 1.25 mg Q6R INH 05/11/17 15:00 06/10/17 14:59 05/12/17 08:00 1.25 MG Levalbuterol (Xopenex 0.63 Mg/ 3 Ml Neb) 0.63 mg Q2H PRN INH 05/11/17 13:00 06/10/17 12:59 Heparin Sodium (Porcine) (Heparin 10 Unit/ ml 5 ml Flush) 5 ml PRN PRN FLUSH 05/11/17 13:45 06/10/17 13:44 Nitroglycerin (Nitroglycerin 2% Oint) 1 inch Q6H EXT 05/12/17 08:30 06/11/17 08:29
--- NOTE | 2017-05-12 13:59 | CARDIOLOGY CONSULTATION ---
DATE OF CONSULTATION: 05/12/2017 REFERRING PHYSICIAN: Dr. Mohamud Aceves. REASON FOR CONSULTATION: Abnormal echocardiogram. CHIEF COMPLAINT ON ADMISSION: Shortness of breath. HISTORY OF PRESENT ILLNESS: Mr. Mcarthur is a 76-year-old gentleman who is unknown to the [facility], presents to the Emergency Department on 05/12/17 with shortness of breath. Recently hospitalized in [place] for acute influenza. Complex cardiovascular issues listed below. The patient reported progressive shortness of breath as well as confusion during the night on 03/10/2018. He came to the Emergency Department and found to be hypoxic. BiPAP was applied for ventilatory support. He is on BiPAP for the majority of the day on 03/10/2018. He received 2 doses of intravenous diuretic therapy due to acute decompensated heart failure. The patient diuresed approximately 1600 mL over the past 24 hours. Per nursing sacral edema improved. Respiratory status improved currently. He is off BiPAP. Chest x-ray demonstrates interstitial thickening. The patient reports dyspnea with minimal exertion. Denies chest pain or palpitations. Telemetry demonstrates sinus rhythm, sinus arrhythmia, Mobitz type 1 second degree AV block versus blocked PACs. ECG confirms the same. The patient is currently resting comfortably. No fever or chills. Significant cough noted with minimal sputum production. The patient offers no other complaints at this time. REVIEW OF SYSTEMS: The pertinent positives noted above, all significant for left lower extremity amputation as well as right-sided transmetatarsal amputation. Comprehensive 10-system review is otherwise negative. PAST MEDICAL HISTORY: 1. Coronary artery disease with myocardial infarction and intervention to undisclosed vessel in 2008 and NSTEMI in 2016 with LAD intervention at that time as well. 2. PVD with left AKA, right-sided transmetatarsal amputation. 3. Hypertension. 4. Diabetes. 5. Paroxysmal atrial fibrillation. 6. Chronic kidney disease. 7. Dyslipidemia. 8. Peptic ulcer disease. 9. Recent influenza B infection and hospitalization. 10. Moderate to severe aortic stenosis. 11. Ischemic cardiomyopathy. 12. Hypothyroidism. 13. Rheumatoid arthritis. 14. MRSA infection. 15. Renal calculi. 16. GERD. PAST SURGICAL HISTORY: 1. Coronary intervention in 2008 to undisclosed vessel. 2. Complex LAD stenting in August 2016. 3. Left-sided above knee amputation. 4. Right sided transmetatarsal amputation. 5. Appendectomy. 6. Cholecystectomy. 7. Lumbar spinal surgery for decompression. FAMILY HISTORY: Negative for premature CAD or sudden cardiac ; however, noncontributory given the patient's advanced age. SOCIAL HISTORY: Former tobacco abuse, quit nearly 30 years ago. Denies alcohol or drug use. ALLERGIES: 1. LEVOFLOXACIN. 2. CEPHALEXIN. 3. PENICILLIN. 4. METOPROLOL. HOME MEDICATIONS: 1. Allopurinol 2 tabs at bedtime. 2. Aspirin 81 mg daily. 3. Plavix 75 mg daily. 4. Lipitor 80 mg daily. 5. Bumex 2 mg twice daily. 6. Carvedilol 12.5 mg twice daily. 7. Colace twice daily. 8. Hydralazine 25 mg t.i.d. 9. Sliding scale insulin. 10. Novolin 70/30 at 80 units subQ b.i.d. 11. Imdur 30 mg daily. 12. Synthroid daily. 13. Lisinopril 2.5 mg at bedtime. 14. Magnesium oxide 400 mg daily. 15. Multivitamin daily. 16. Nitrostat daily as needed. 17. Potassium chloride 20 mEq twice daily. 18. Prednisone 5 mg b.i.d. 19. Flomax 0.4 mg daily. 20. Tylenol as needed. 21. Albuterol inhaler as needed. 22. Percocet as needed. EKG demonstrates sinus rhythm with sinus arrhythmia, second-degree AV block, Mobitz type 1. LABORATORY DATA: Peak troponin 0.60. Sodium 138, potassium 4.7, chloride 105, CO2 of 20, BUN is 34, and creatinine is 1.74. White blood cell count 7.69, hemoglobin is 9.2, and platelet count is 194. ABG on admission 7.40/40/80/24/94.4% on 35% FiO2. INR 0.9. Urinalysis, moderate leukocyte esterase. Influenza screen: Positive for type B. PHYSICAL EXAMINATION: VITAL SIGNS: Temperature is 36.5 degrees centigrade, pulse 71 beats per minute and regular, respiratory rate is 16 breaths per minute, blood pressure 120/69 and SaO2 is 93% on 2 liters nasal cannula. GENERAL: NAD, chronically ill, awake, alert and oriented x3. THROAT: His mucous membranes are dry. No scleral icterus. Conjunctivae pink. NECK: Supple. Elevated JVD. No HJR. No carotid bruit. HEART: Regular with a 2-3/6 late peaking systolic ejection murmur heard best at the right second intercostal space without radiation. LUNGS: Demonstrate scant crackles at the bases bilaterally. Mild end expiratory wheezing noted. ABDOMEN: Soft, obese, and nontender. No rebound or guarding. Normal bowel sounds. EXTREMITIES: Left-sided AKA, right-sided transmetatarsal amputation, 2+ pedal, pretibial, right-sided femoral edema on exam. NEUROLOGIC: Demonstrates no focal deficit. FINAL IMPRESSION: 1. Complex 76-year-old male admitted with progressive dyspnea on exertion secondary to influenza and acute decompensated heart failure in the setting of moderate to severe aortic stenosis. The patient improved with diuretic therapy. 2. Chronic complex coronary artery disease with a history of prior stenting to LAD as well as undisclosed vessel. Per discussion with the patient, it appears that there is residual coronary artery disease that was not intervened upon in August; however, I did not have details of his catheterization. 3. History of ischemic cardiomyopathy with an ejection fraction reported at 39% at time of non-ST elevation myocardial infarction in August 2016. Repeat echocardiogram performed in [place] demonstrated improvement of LV function. His repeat echocardiogram here as well demonstrates normal LV systolic function with mild basal inferior hypokinesis. 4. 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 5. Hypertension -- controlled. 6. Chronic kidney disease with baseline creatinine running 1.8 to 2.3 per review of records. 7. Dyslipidemia, tolerating high dose statin. 8. Peripheral venous disease, status post amputation as noted above. 9. Diabetes type 2, uncontrolled per most recent hemoglobin A1c, 8.7%. 10. Chart history of paroxysmal atrial fibrillation - the patient is in sinus rhythm with Mobitz type 1 and possible blocked premature atrial contractions at this time. 11. History of peptic ulcer disease. 12. Anemia. PLAN AND RECOMMENDATIONS: Recommend diuretic therapy, Lasix 80 mg will be given x1 now. We will follow fluid balance, daily weight as well as renal function and electrolytes closely. Continue dual antiplatelet therapy for a minimum of 1 year post-PCI (August 2016). The patient will also continue high dose statin, hydralazine, and topical nitrates. We will hold low dose ANNE MARIE inhibitor during active diuresis. The patient will be transitioned back to isosorbide mononitrate at the time of discharge. No indication for intravenous anticoagulation at this time. I will continue to follow the patient during hospitalization. Thank you for allowing me to participate in the care of your patient. Please note approximately 40 minutes of critical care time spent in reviewing records, direct evaluation of the patient, formulating plan of care as well as ordering medications and reviewing lab studies.
[2017-05-12] MEDS ORDERED: NURSING VERBAL MED ORDER ONE (16:15)
[2017-05-12] MEDS: ASPIRIN 81 MG ECTAB PO SCH (20:34)
[2017-05-12] MEDS: ALLOPURINOL 100 MG TAB PO SCH (20:36)
[2017-05-12] MEDS: LISINOPRIL 2.5 MG TAB PO SCH (20:36)
[2017-05-12] MEDS: ENOXAPARIN 40 MG/0.4 ML SYR SC SCH (20:42)
[2017-05-13] VITALS (9 sets, daily range): BP systolic 104–159; BP diastolic 59–80; PULSE 58–94; TEMP 36.5–36.7; O2SAT 93–96
[2017-05-13] MEDS: LEVALBUTEROL 1.25MG/3ML NEB INH SCH ×4 (02:07→19:51)
[2017-05-13] MEDS: LEVOTHYROXINE 50 MCG TAB PO SCH (06:21)
[2017-05-13 06:53] LABS: CREATININE 1.71 mg/dl (0.60-1.40)
--- NOTE | 2017-05-13 07:21 | DIAGNOSTIC IMAGING REPORT ---
CHEST ONE VIEW PORTABLE HISTORY: Short of breath. CHF COMPARISON: Chest 05/12/2017. FINDINGS: There are low lung volumes. The heart remains borderline enlarged. Interstitial and vascular thickening has slightly progressed. Trace right pleural effusion, unchanged. No pneumothorax. IMPRESSION: Slight progression of the mild congestive change. Electronically signed by: Cory Li M.D. 05/13/2017 7:19 AM Dictated Date/Time: 05/13/2017 7:19 AM
[2017-05-13] MEDS: FLUTICASONE PROPIONATE NA SPR 16 GM BTL SCH (08:00)
[2017-05-13] MEDS: CLOPIDOGREL BISULFATE 75 MG TAB PO SCH (08:00)
[2017-05-13] MEDS: ATORVASTATIN 40 MG TAB PO SCH (08:00)
[2017-05-13] MEDS: CARVEDILOL 12.5 MG TAB PO SCH ×2 (08:00→19:52)
[2017-05-13] MEDS: MAGNESIUM OXIDE 400 MG TAB PO SCH (08:00)
[2017-05-13] MEDS: TAMSULOSIN HCL 0.4 MG CAP PO SCH (08:00)
[2017-05-13] MEDS: PANTOprazole SOD 40 MG TAB PO SCH ×2 (08:00→19:53)
[2017-05-13] MEDS: DOCUSATE SODIUM 100 MG CAP PO SCH ×2 (08:00→19:52)
[2017-05-13] MEDS: INSULIN ASPART 100 UNITS/ML 3 ML PEN SC SCH ×5 (08:04→23:41)
[2017-05-13] MEDS: INSULIN GLARGINE SOLOSTAR 100 UNITS/ML 3 ML PEN SC SCH (08:05)
[2017-05-13] MEDS: NITROGLYCERIN 2% OINTMENT 30GM TUBE EXT SCH ×3 (08:06→19:51)
[2017-05-13] MEDS: POTASSIUM CHLORIDE 20 MEQ TABCR PO SCH (08:07)
[2017-05-13] MEDS ORDERED: NURSING VERBAL MED ORDER ONE (09:45)
[2017-05-13] MEDS ORDERED: FUROSEMIDE INJ 80 MG in SYRINGE 0 ML IV ONE (10:30)
[2017-05-13] MEDS: OXYCODONE/ACETAMINOPHEN 5-325 TAB PO PRN (11:10)
[2017-05-13] MEDS ORDERED: PHARMACY GLYCEMIC MGMT CONSULT PRN (11:30)
--- NOTE | 2017-05-13 12:33 | Cardiology Follow-Up ---
Subjective General Date of Service: May 13, 2017. Pt evaluation today including: conversation w/ patient, physical exam, chart review, lab review, review of studies, review of inpatient medication list History of Present Illness The patient is a 76 year old male seen in follow-up. States he feels cold today. No fevers recorded. Denies chest pain. Dyspnea with exertion and cough noted. No orthopnea or PND. Right lower extremity edema unchanged. Allergies Coded Allergies: Levofloxacin (Verified Allergy, Mild, urticaria, 05/11/17) Cephalexin (Verified Allergy, Unknown, unknown, 05/11/17) Penicillins (Verified Allergy, Unknown, unknown, 05/11/17) Metoprolol (Verified Adverse Reaction, Intermediate, nightmares, 05/11/17) Social History Smoking Status: Former Smoker Hx Tobacco Use In Past Year?: No Hx Alcohol Use - Type And Amou: No Hx Substance Use - Type And Am: No Problem List Medical Problems: (1) Acute CHF Status: Acute (2) Respiratory failure Status: Acute Review of Systems Respiratory: + cough, + dyspnea on exertion, No sputum, No wheezing, No shortness of breath, No dyspnea at rest, No hemoptysis Cardiac: + edema, No chest pain, No orthopnea, No PND, No claudication, No palpitations Physical Exam Vital Signs Last Vital Signs Documentation Date Time Temp Pulse Resp B/P (MAP) Pulse Ox O2 Delivery O2 Flow Rate FiO2 05/13/17 12:25 76 20 127/59 (81) 93 Room Air 05/13/17 07:04 2.0 05/12/17 23:00 36.6 05/12/17 02:18 35 Physical Exam Constitutional: General Apperance: overweight Level of Distress: chronically ill Head: atraumatic Lungs: Auscultation: expiratory wheezing, rhonchi Cardiovascular: Heart Auscultation: RRR, normal S1, normal S2, III/ ELISE Peripheral Pulses: Radial Pulse: normal on the left, normal on the right Abdomen: Inspection & Palpation: soft, non-distended, no tenderness, guarding & rebound Extremities: no cyanosis, edema (2+RLE edema), pertinent finding (left AKA, right sided transmetatarsal amputation) Neurologic: Gait & Station: pertinent finding (no focal motor deficit.) Cranial Nerves: grossly intact Assessment and Plan Assessment and Plan FINAL IMPRESSION: 1. Dyspnea on exertion secondary to influenza and acute decompensated heart failure in the setting of moderate to severe aortic stenosis. 2. Chronic complex coronary artery disease with a history of prior stenting to LAD as well as undisclosed vessel. Per discussion with the patient, it appears that there is residual coronary artery disease that was not intervened upon in August; however, I do not have details of his catheterization. 3. History of ischemic cardiomyopathy with an ejection fraction reported at 39% at time of non-ST elevation myocardial infarction in August 2016. Repeat echocardiogram performed in [place] demonstrated improvement of LV function. His repeat echocardiogram here as well demonstrates normal LV systolic function with mild basal inferior hypokinesis. 4. Moderate to severe aortic stenosis 5. Hypertension -- controlled. 6. Chronic kidney disease - baseline creatinine running 1.8 to 2.3 per 7. Dyslipidemia, tolerating high dose statin. 8. Peripheral venous disease, status post amputation as noted above. 9. Diabetes type 2, uncontrolled per most recent hemoglobin A1c, 8.7%. 10. Chart history of paroxysmal atrial fibrillation - the patient is in sinus rhythm with Mobitz type 1 and possible blocked premature atrial contractions at this time. 11. History of peptic ulcer disease. 12. Anemia. PLAN AND RECOMMENDATIONS: Lasix 80mg IV today. Follow fluid balance, renal function, electrolytes closely. Continue dual antiplatelet therapy for a minimum of 1 year post-PCI (August 2016) . The patient will also continue high dose statin, hydralazine, and topical nitrates. Hold low dose ANNE MARIE inhibitor during active diuresis with plans to restart prior to discharge. Laboratory Results Last 24 Hours Test 05/12/17 16:10 05/12/17 20:23 05/13/17 05:48 05/13/17 11:13 Bedside Glucose 313 mg/dl 321 mg/dl 311 mg/dl Sodium Level 135 mmol/L Potassium Level 5.0 mmol/L Chloride Level 103 mmol/L Carbon Dioxide Level 25 mmol/L Anion Gap 7.0 mmol/L Blood Urea Nitrogen 37 mg/dl Creatinine 1.71 mg/dl Est Creatinine Clear Calc Drug Dose 46.2 ml/min Estimated GFR () 44.7 Estimated GFR (Non- 38.6 BUN/Creatinine Ratio 21.4 Random Glucose 328 mg/dl Calcium Level 8.0 mg/dl Magnesium Level 2.2 mg/dl Beta-Hydroxybutyric Acid 3.95 mg/dL Thyroid Stimulating Hormone (TSH) 1.850 uIu/ml
--- NOTE | 2017-05-13 13:09 | Pharmacy Progress Note ---
Glycemic Control Intl Consult Date of Service May 13, 2017. Scope Glycemic Pharmacist consulted by Dr Irving on 05/13/17 for glycemic control and to write orders per [facility] inpatient glycemic control protocol Objective Weight (Kilograms): 102.400 Accuchecks BSG (last 24hrs): Test 05/12/17 16:10 05/12/17 20:23 05/13/17 05:48 05/13/17 11:13 Bedside Glucose 313 mg/dl (70-99) 321 mg/dl (70-99) 311 mg/dl (70-99) Random Glucose 328 mg/dl (70-99) Laboratory Data (last 24hrs) Test 05/13/17 05:48 Anion Gap 7.0 mmol/L BUN/Creatinine Ratio 21.4 Blood Urea Nitrogen 37 mg/dl Creatinine 1.71 mg/dl Potassium Level 5.0 mmol/L Sodium Level 135 mmol/L HbA1c Test 05/12/17 05:41 Hemoglobin A1c 8.7 % (4.5-5.6) H Recent Pertinent Medications Outpatient Anti-diabetic Regimen: * novolin 70/30 80 units BID * A1c = 8.7 % 05/12/17 The patient is currently receiving: * Basal insulin: Lantus 17/3 units every 12 hours * Correctional Insulin: Novolog Correction per scale ACHS Goal Range: Low 140 mg/dL - High 180 mg/dL Correction Factor: 25 mg/dL/unit * Prandial insulin: Per carb ratio of 1 unit per 8 grams CHO consumed Risk Factors for Insulin Resistance: * Steroids:prednisone 5mg BID (home dose) * Infection: recent influenza infection * Pressors: * IVF: * Recent Surgery * Diet: clear liquids, now AHA/T2DM * Mechanical Ventilation: Assessment & Plan ASSESSMENT: * Patient was mildly hypoglycemic on admission but since has had sugars into the two and three hundreds despite lantus scale. Using the patient's outpatient regimen of Novolin 70/30 80 units BID, ~40% of that total daily dose would equate to ~ 30 units BID lantus. I will lower the goal range and tighten the CF for lunchtime and give a larger, earlier dose of lantus at dinner time. I placed a tentative lantus scale on hold starting tomorrow morning pending response to increased novolog and lantus today. Patient continues on home dose of prednisone 5mg BID and was started on a solid diet today. PLAN FOR INPATIENT GLYCEMIC CONTROL: * Holding outpatient oral diabetes medications * Basal insulin with LANTUS 30 units SQX 1 @ 1700, then as per scale 2/15 AM * Correctional Insulin with NOVOLOG / REGULAR per scale ACHS or Q6hrs while NPO * Goal Range: Low 110 mg/dL - High 140 mg/dL * Correction Factor: 20 mg/dL/unit * Nutritional / Prandial insulin per carb ratio of 1 unit per 8 grams CHO consumed * Please note that the plan above was derived based on current level of insulin resistance and hospital stress. These recommendations are appropriate for inpatient admission only. Plan of care upon discharge will need to be reassessed to avoid potential outpatient hypo/hyperglycemia. Thank you.
[2017-05-13] MEDS ORDERED: INSULIN GLARGINE SOLOSTAR 100 UNITS/ML 3 ML PEN SC ONE (17:00)
[2017-05-13] MEDS: COLLAGENASE OINT 30 GM TUBE EXT SCH (17:07)
--- NOTE | 2017-05-13 18:22 | Progress Note ---
Medicine Progress Note Date & Time of Visit: May 13, 2017 at 10:18. Subjective Pt was seen and examined Lying in bed with no distress Pt said that he is breathing feels much better Denies any chest pain, palpitation and SOB Objective Last 8 Hrs Date Time Temp Pulse Resp B/P (MAP) Pulse Ox O2 Delivery O2 Flow Rate FiO2 05/13/17 16:00 36.5 58 20 125/67 (86) 93 Room Air 05/13/17 16:00 Room Air 05/13/17 14:23 72 16 95 Room Air 05/13/17 12:25 76 20 127/59 (81) 93 Room Air 05/13/17 12:00 Room Air Physical Exam: General- No acute distress Head- atraumatic Eyes- PERRL, EOMI ENT- oropharynx clear Neck- supple, no JVD Lungs- clear to auscultation Heart- regular rhythm; +murmur Abdomen- normal bowel sounds, soft Extremities- No calf tenderness, S/p Left AKA, +RLE edema Neuro- alert, oriented x 3; PERRL, EOMI Skin- warm & dry Laboratory Results: Last 24 Hours Test 05/12/17 20:23 05/13/17 05:48 05/13/17 11:13 05/13/17 16:34 Bedside Glucose 321 mg/dl 311 mg/dl 261 mg/dl Sodium Level 135 mmol/L Potassium Level 5.0 mmol/L Chloride Level 103 mmol/L Carbon Dioxide Level 25 mmol/L Anion Gap 7.0 mmol/L Blood Urea Nitrogen 37 mg/dl Creatinine 1.71 mg/dl Est Creatinine Clear Calc Drug Dose 46.2 ml/min Estimated GFR () 44.7 Estimated GFR (Non- 38.6 BUN/Creatinine Ratio 21.4 Random Glucose 328 mg/dl Calcium Level 8.0 mg/dl Magnesium Level 2.2 mg/dl Beta-Hydroxybutyric Acid 3.95 mg/dL Thyroid Stimulating Hormone (TSH) 1.850 uIu/ml Assessment & Plan CHF / PULMONARY EDEMA Present with SOB on admission Was recently admitted in [place] for weakness and dehydration. His Bumex was held due to dehydration and received IVF. Chest x-ray on admission consistent with CHF. Elevated pro -BNP Received Lasix 80mg today Clinically improved significantly Will monitor BMP closely If creatine stable will dose for additional lasix tomorrow after lab. Cardiology consult ECHO showed * Ejection Fraction = 55-60%. * There is mild concentric left ventricular hypertrophy. * The base and mid inferior wall is hypokinetic. * The aortic valve is poorly visualized and moderately calcified. * Moderate to severe valvular aortic stenosis. * There is mild mitral regurgitation. * There is mild tricuspid regurgitation. CORONARY ARTERY DISEASE Denies any chest pain Serum troponin peak to 0.060 now trending down to normal, possible related to CHF Recent ECHO showed base and mid inferior wall is hypokinetic. ECHO done at [place] last weeks showed normal left ventricle wall motion and wall thickness with normal EF Continue aspirin, clopidogrel, carvedilol, nitrates, statin. Continue monitor in tele ARRHYTHMIA EKG showed possible Mobitz type 1 heart block. Continue monitor on telemetry. On carvedilol Will discuss EKG finding with Cardiology HYPERTENSION BP stable Continue carvedilol, lisinopril, hydralazine, nitrates. INFLUENZA B Was treating at [place] last week with Tamiflu Continue droplet precaution Stable CKD III Creatine baseline as per discharge Summary from [place] btw 1.8 to 2.2 I called his PCP office his last creatine back in February was 1.5 Creatine on admission 1.91 Creatine remains 1.7 Continue avoiding nephrotoxic agents Monitor BMP WEAKNESS Due to acute illness Urine cx no growth blood cx pending PT/OT Fall precaution DM TYPE 2 Recent Hba1c 8.7 On insulin sliding scale and lantus Pharmacy consulted for glycemic management Continue monitor BS HYPOTHYROIDISM Continue levothyroxine. DYSLIPIDEMIA LDL 73 Continue atorvastatin. GOUT Continue allopurinol. RA / CHRONIC STEROID THERAPY Has been on chronic prednisone for many years. Apparently instructed to stop prednisone when discharged at [place] Received Hydrocortisone x1 Continue prednisone VENOUS STASIS ULCERS RLE No apparent cellulitis. Local care / dressing changes. HISTORY MRSA Contact precautions. RESUSCITATION STATUS FULL CODE VTE PROPHYLAXIS SQ enoxaparin. DISPOSITION Will discharge once medically stable Follow up with PCP at [facility]. Current Inpatient Medications: Current Inpatient Medications Medications (Trade) Dose Ordered Sig/Jim Route Start Time Stop Time Status Last Admin Dose Admin Enoxaparin Sodium (Lovenox Inj) 40 mg Q24H SC 05/11/17 22:00 06/10/17 21:59 05/12/17 20:42 40 MG Acetaminophen (Tylenol Tab) 650 mg Q4H PRN PO 2/12/18 08:00 06/10/17 07:59 Nitroglycerin (Nitrostat Tab) 0.4 mg UD PRN SL 05/11/17 08:00 06/10/17 07:59 Insulin Aspart (novoLOG ASPART) SLIDING SCALE If C... ACHS SC 05/11/17 16:00 06/10/17 15:59 05/13/17 17:06 11 UNITS Glucose (Glucose 40% Gel) 15-30 GRAMS 15 GRAMS... UD PRN PO 05/11/17 09:45 06/10/17 09:44 Glucose (Glucose Chew Tab) 4-8 Tablets 4 Tabl... UD PRN PO 05/11/17 09:45 06/10/17 09:44 Dextrose (Dextrose 50% 50ML Syringe) 25-50ML OF 50% DW IV FOR... UD PRN IV 05/11/17 09:45 06/10/17 09:44 Glucagon (Glucagon Inj) 1 mg UD PRN SQ 05/11/17 09:45 06/10/17 09:44 Allopurinol (Zyloprim Tab) 200 mg HS PO 05/11/17 21:00 06/10/17 20:59 05/12/17 20:36 200 MG Aspirin (Ecotrin Tab) 81 mg HS PO 05/11/17 21:00 06/10/17 20:59 05/12/17 20:34 81 MG Atorvastatin Calcium (Lipitor Tab) 80 mg DAILY PO 05/12/17 09:00 06/11/17 08:59 05/13/17 08:00 80 MG Carvedilol (Coreg Tab) 12.5 mg BID PO 05/11/17 21:00 06/10/17 20:59 05/13/17 08:00 12.5 MG Clopidogrel Bisulfate (plAVix TAB) 75 mg DAILY PO 05/12/17 09:00 06/11/17 08:59 05/13/17 08:00 75 MG Fluticasone Propionate (Flonase Nasal [place]) 1 sprays QAM NA 05/12/17 09:00 06/11/17 08:59 05/13/17 08:00 1 SPRAYS Hydralazine HCl (Apresoline Tab) 25 mg TID PO 05/11/17 14:00 3/14/18 13:59 05/13/17 13:37 25 MG Levothyroxine Sodium (Synthroid Tab) 50 mcg DAILYBB PO 05/12/17 06:00 06/11/17 05:59 05/13/17 06:21 50 MCG Lisinopril (Zestril Tab) 2.5 mg HS PO 05/11/17 21:00 06/10/17 20:59 Future Hold 05/12/17 20:36 2.5 MG Magnesium Oxide (Mag-Ox Tab) 400 mg DAILY PO 05/12/17 09:00 06/11/17 08:59 05/13/17 08:00 400 MG Oxycodone/ Acetaminophen (Percocet 5-325mg Tab) 1 tab Q6H PRN PO 05/11/17 13:00 05/25/17 12:59 05/13/17 11:10 1 TAB Pantoprazole Sodium (Protonix Tab) 40 mg BID PO 05/11/17 21:00 06/10/17 20:59 05/13/17 08:00 40 MG Potassium Chloride (Klor-Con Tab) 20 meq BID PO 05/11/17 21:00 06/10/17 20:59 Future Hold 05/12/17 20:34 20 MEQ Prednisone (PredniSONE TAB) 5 mg BID PO 05/11/17 21:00 06/10/17 20:59 05/13/17 08:00 5 MG Tamsulosin HCl (Flomax Cap) 0.4 mg DAILY PO 05/12/17 09:00 06/11/17 08:59 05/13/17 08:00 0.4 MG Docusate Sodium (coLACE CAP) 100 mg BID PO 05/11/17 21:00 06/10/17 20:59 05/13/17 08:00 100 MG Levalbuterol (Xopenex 1.25MG/ 3ML Neb) 1.25 mg Q6R INH 05/11/17 15:00 06/10/17 14:59 05/13/17 14:20 1.25 MG Levalbuterol (Xopenex 0.63 Mg/ 3 Ml Neb) 0.63 mg Q2H PRN INH 05/11/17 13:00 06/10/17 12:59 Heparin Sodium (Porcine) (Heparin 10 Unit/ ml 5 ml Flush) 5 ml PRN PRN FLUSH 05/11/17 13:45 06/10/17 13:44 Nitroglycerin (Nitroglycerin 2% Oint) 1 inch Q6H EXT 05/12/17 08:30 06/11/17 08:29 05/13/17 13:38 1 INCH Collagenase (Santyl Oint) 1 appln DAILY EXT 05/13/17 09:00 06/12/17 08:59 05/13/17 17:07 1 APPLN Miscellaneous Information (Consult Glycemic Management Pharmacy) 1 ea UD PRN N/A 05/13/17 11:30 06/12/17 11:29 Insulin Glargine (Lantus Solostar Pen) Q12 SC 05/14/17 09:00 06/13/17 08:59 Future Hold Insulin Aspart (novoLOG ASPART) SLIDING SCALE If C... TODAY@0000,0400 SC 05/14/17 00:00 05/14/17 05:00
[2017-05-13] MEDS: ASPIRIN 81 MG ECTAB PO SCH (19:52)
[2017-05-13] MEDS: ALLOPURINOL 100 MG TAB PO SCH (19:53)
[2017-05-13] MEDS: ENOXAPARIN 40 MG/0.4 ML SYR SC SCH (19:54)
[2017-05-14] VITALS (11 sets, daily range): BP systolic 140–167; BP diastolic 65–85; PULSE 66–98; TEMP 36.3–36.9; O2SAT 92–97
[2017-05-14] MEDS: LEVALBUTEROL 1.25MG/3ML NEB INH SCH ×4 (02:00→19:44)
[2017-05-14] MEDS: NITROGLYCERIN 2% OINTMENT 30GM TUBE EXT SCH ×4 (02:25→20:46)
[2017-05-14] MEDS: INSULIN ASPART 100 UNITS/ML 3 ML PEN SC SCH ×5 (04:05→20:50)
[2017-05-14] MEDS: LEVOTHYROXINE 50 MCG TAB PO SCH (05:51)
[2017-05-14 06:10] LABS: CALCIUM 8.2 mg/dl (8.5-10.1); CREATININE 1.47 mg/dl (0.60-1.40)
[2017-05-14] MEDS: PROCHLORPERAZINE INJ 5 MG in SYRINGE 4 ML IV PRN (07:36)
[2017-05-14] MEDS: COLLAGENASE OINT 30 GM TUBE EXT SCH (08:46)
[2017-05-14] MEDS: FLUTICASONE PROPIONATE NA SPR 16 GM BTL SCH (08:46)
[2017-05-14] MEDS: DOCUSATE SODIUM 100 MG CAP PO SCH ×2 (08:47→20:47)
[2017-05-14] MEDS: ATORVASTATIN 40 MG TAB PO SCH (08:47)
[2017-05-14] MEDS: CLOPIDOGREL BISULFATE 75 MG TAB PO SCH (08:47)
[2017-05-14] MEDS: CARVEDILOL 12.5 MG TAB PO SCH ×2 (08:47→20:46)
[2017-05-14] MEDS: TAMSULOSIN HCL 0.4 MG CAP PO SCH (08:47)
[2017-05-14] MEDS: MAGNESIUM OXIDE 400 MG TAB PO SCH (08:48)
[2017-05-14] MEDS: PANTOprazole SOD 40 MG TAB PO SCH ×2 (08:48→20:47)
[2017-05-14] MEDS: INSULIN GLARGINE SOLOSTAR 100 UNITS/ML 3 ML PEN SC SCH ×2 (08:52→20:52)
[2017-05-14] MEDS ORDERED: INSULIN GLARGINE SOLOSTAR 100 UNITS/ML 3 ML PEN SC SCH (09:00)
[2017-05-14] MEDS ORDERED: ONDANSETRON INJ 2 MG/ML 2 ML VIAL IV ONE (10:00)
--- NOTE | 2017-05-14 11:17 | Pharmacy Progress Note ---
Pharmacy Glycemic Short Note 2 Date of Service May 14, 2017. OUTPATIENT ANTIDIABETIC REGIMEN: * Novolin 70/30 80 units BID * (also on prednisone 5 mg BID) ASSESSMENT: * Patient received a total of 85 units of insulin yesterday * No additional stressors added * Fasting is much improved at 138 mg/dL. Will plan to provide a set dose of basal now that BSGs have improved * Current CF/CR seem appropriate so will continue for now PLAN FOR INPATIENT GLYCEMIC CONTROL: * Basal insulin * Change to set dose of Lantus 20 units SQ BID * Bolus insulin * NovoLog per scale ACHS or Q6hrs while NPO * Goal Range: Low 110 mg/dL - High 140 mg/dL * Correction Factor: 20 mg/dL/unit * Nutritional / Prandial insulin per carb ratio of 1 unit per 8 grams CHO consumed PLAN FOR DISCHARGE: * A1c 8.7% on this admission - slightly above goal for age/comorbidities * Continue outpatient regimen and f/u with PCP for adjustments
[2017-05-14] MEDS ORDERED: FUROSEMIDE INJ 40 MG in SYRINGE 0 ML IV ONE ×2 (12:00→17:15)
--- NOTE | 2017-05-14 14:05 | DIAGNOSTIC IMAGING REPORT ---
ABDOMEN 2VIEW W/PA CHEST RTN CLINICAL HISTORY: abdominal distended/Nausea pain COMPARISON STUDY: 05/13/2017 FINDINGS: Increased pulmonary vasculature. Diaphragms are smooth. Heart is top limits normal in size. Bowel pattern is nonobstructive. Degenerative changes of the lumbar spine as well as hips bilaterally. IMPRESSION: Nonobstructive bowel pattern. 2. Developing congestive heart failure The above report was generated using voice recognition software. It may contain grammatical, syntax or spelling errors. Electronically signed by: aVn Moreno M.D. 05/14/2017 2:03 PM Dictated Date/Time: 05/14/2017 2:02 PM
[2017-05-14] MEDS: OXYCODONE/ACETAMINOPHEN 5-325 TAB PO PRN (14:28)
--- NOTE | 2017-05-14 16:52 | Progress Note ---
Medicine Progress Note Date & Time of Visit: May 14, 2017 at 10:47. Subjective Pt was seen and examined Lying in bed Pt said that he feels nauseated He is very anxious He denies any chest pain, palpitation and SOB Objective Last 8 Hrs Date Time Temp Pulse Resp B/P (MAP) Pulse Ox O2 Delivery O2 Flow Rate FiO2 05/14/17 15:35 36.8 74 20 147/85 (105) 93 Room Air 05/14/17 14:22 98 15 92 Nasal Cannula 2.0 05/14/17 12:00 Nasal Cannula 2.0 05/14/17 11:57 97 Nasal Cannula 2.0 05/14/17 11:28 36.6 69 24 164/77 (106) 93 Room Air 05/14/17 10:48 36.3 71 20 165/79 (107) 94 Room Air Physical Exam: General- No acute distress Head- atraumatic Eyes- PERRL, EOMI ENT- oropharynx clear Neck- supple, no JVD Lungs- clear to auscultation Heart- regular rhythm; +murmur Abdomen- normal bowel sounds, soft Extremities- No calf tenderness, S/p Left AKA, +RLE edema Neuro- alert, oriented x 3; PERRL, EOMI Skin- warm & dry Laboratory Results: Last 24 Hours Test 05/13/17 20:14 05/13/17 23:36 05/14/17 04:00 05/14/17 05:15 Bedside Glucose 173 mg/dl 147 mg/dl 147 mg/dl Sodium Level 138 mmol/L Potassium Level 4.0 mmol/L Chloride Level 104 mmol/L Carbon Dioxide Level 26 mmol/L Anion Gap 8.0 mmol/L Blood Urea Nitrogen 29 mg/dl Creatinine 1.47 mg/dl Est Creatinine Clear Calc Drug Dose 53.7 ml/min Estimated GFR () 53.7 Estimated GFR (Non- 46.3 BUN/Creatinine Ratio 19.5 Random Glucose 146 mg/dl Calcium Level 8.2 mg/dl Test 05/14/17 07:00 05/14/17 10:47 Bedside Glucose 138 mg/dl 121 mg/dl Assessment & Plan CHF / PULMONARY EDEMA Present with SOB on admission Was recently admitted in [facility] for weakness and dehydration. His Bumex was held due to dehydration and received IVF. Chest x-ray on admission consistent with CHF. Elevated pro -BNP Received Lasix 80mg today Clinically improved significantly Will monitor BMP closely If creatine stable will dose for additional lasix tomorrow after lab. Cardiology consult 05/14 Repeat CXR today showed developing congestive heart failure Received Lasix 80mg daily in the last 2 days Lasix 40mg IV given this morning Will give an additional 40mg IV lasix Continue monitor Tele cardiology on board ECHO showed * Ejection Fraction = 55-60%. * There is mild concentric left ventricular hypertrophy. * The base and mid inferior wall is hypokinetic. * The aortic valve is poorly visualized and moderately calcified. * Moderate to severe valvular aortic stenosis. * There is mild mitral regurgitation. * There is mild tricuspid regurgitation. CORONARY ARTERY DISEASE Denies any chest pain Serum troponin peak to 0.060 now trending down to normal, possible related to CHF Recent ECHO showed base and mid inferior wall is hypokinetic. ECHO done at [facility] last weeks showed normal left ventricle wall motion and wall thickness with normal EF Continue aspirin, clopidogrel, carvedilol, nitrates, statin. Continue monitor in tele ARRHYTHMIA EKG showed possible Mobitz type 1 heart block. Continue monitor on telemetry. On carvedilol Stable HYPERTENSION BP stable Continue carvedilol, lisinopril, hydralazine, nitrates. INFLUENZA B Was treating at [facility] last week with Tamiflu Continue droplet precaution Stable CKD III Creatine baseline as per discharge Summary from [facility] btw 1.8 to 2.2 I called his PCP office his last creatine back in February was 1.5 Creatine on admission 1.91 Creatine improved to 1.4 today Continue avoiding nephrotoxic agents Monitor BMP WEAKNESS Due to acute illness Urine cx no growth blood cx pending PT/OT Fall precaution DM TYPE 2 Recent Hba1c 8.7 On insulin sliding scale and lantus Pharmacy consulted for glycemic management Continue monitor BS HYPOTHYROIDISM Continue levothyroxine. DYSLIPIDEMIA LDL 73 Continue atorvastatin. GOUT Continue allopurinol. RA / CHRONIC STEROID THERAPY Has been on chronic prednisone for many years. Apparently instructed to stop prednisone when discharged at [facility] Received Hydrocortisone x1 Continue prednisone VENOUS STASIS ULCERS RLE No apparent cellulitis. Local care / dressing changes. HISTORY MRSA Contact precautions. RESUSCITATION STATUS FULL CODE VTE PROPHYLAXIS SQ enoxaparin. DISPOSITION Will discharge once medically stable Follow up with PCP at [facility]. Current Inpatient Medications: Current Inpatient Medications Medications (Trade) Dose Ordered Sig/Jim Route Start Time Stop Time Status Last Admin Dose Admin Enoxaparin Sodium (Lovenox Inj) 40 mg Q24H SC 05/11/17 22:00 06/10/17 21:59 05/13/17 19:54 40 MG Acetaminophen (Tylenol Tab) 650 mg Q4H PRN PO 05/11/17 08:00 06/10/17 07:59 Nitroglycerin (Nitrostat Tab) 0.4 mg UD PRN SL 05/11/17 08:00 06/10/17 07:59 Insulin Aspart (novoLOG ASPART) SLIDING SCALE If C... ACHS SC 05/11/17 16:00 06/10/17 15:59 05/13/17 21:04 2 UNITS Glucose (Glucose 40% Gel) 15-30 GRAMS 15 GRAMS... UD PRN PO 05/11/17 09:45 06/10/17 09:44 Glucose (Glucose Chew Tab) 4-8 Tablets 4 Tabl... UD PRN PO 05/11/17 09:45 06/10/17 09:44 Dextrose (Dextrose 50% 50ML Syringe) 25-50ML OF 50% DW IV FOR... UD PRN IV 05/11/17 09:45 06/10/17 09:44 Glucagon (Glucagon Inj) 1 mg UD PRN SQ 05/11/17 09:45 06/10/17 09:44 Allopurinol (Zyloprim Tab) 200 mg HS PO 05/11/17 21:00 06/10/17 20:59 05/13/17 19:53 200 MG Aspirin (Ecotrin Tab) 81 mg HS PO 05/11/17 21:00 06/10/17 20:59 05/13/17 19:52 81 MG Atorvastatin Calcium (Lipitor Tab) 80 mg DAILY PO 05/12/17 09:00 06/11/17 08:59 05/14/17 08:47 80 MG Carvedilol (Coreg Tab) 12.5 mg BID PO 05/11/17 21:00 06/10/17 20:59 05/14/17 08:47 12.5 MG Clopidogrel Bisulfate (plAVix TAB) 75 mg DAILY PO 05/12/17 09:00 06/11/17 08:59 05/14/17 08:47 75 MG Fluticasone Propionate (Flonase Nasal [place]) 1 sprays QAM NA 05/12/17 09:00 06/11/17 08:59 05/14/17 08:46 1 SPRAYS Hydralazine HCl (Apresoline Tab) 25 mg TID PO 05/11/17 14:00 06/10/17 13:59 05/14/17 14:28 25 MG Levothyroxine Sodium (Synthroid Tab) 50 mcg DAILYBB PO 05/12/17 06:00 06/11/17 05:59 05/14/17 05:51 50 MCG Lisinopril (Zestril Tab) 2.5 mg HS PO 05/11/17 21:00 06/10/17 20:59 Future Hold 05/12/17 20:36 2.5 MG Magnesium Oxide (Mag-Ox Tab) 400 mg DAILY PO 05/12/17 09:00 06/11/17 08:59 05/14/17 08:48 400 MG Oxycodone/ Acetaminophen (Percocet 5-325mg Tab) 1 tab Q6H PRN PO 05/11/17 13:00 05/25/17 12:59 05/14/17 14:28 1 TAB Pantoprazole Sodium (Protonix Tab) 40 mg BID PO 05/11/17 21:00 06/10/17 20:59 05/14/17 08:48 40 MG Potassium Chloride (Klor-Con Tab) 20 meq BID PO 05/11/17 21:00 06/10/17 20:59 Future Hold 05/12/17 20:34 20 MEQ Prednisone (PredniSONE TAB) 5 mg BID PO 05/11/17 21:00 06/10/17 20:59 05/14/17 08:49 5 MG Tamsulosin HCl (Flomax Cap) 0.4 mg DAILY PO 05/12/17 09:00 06/11/17 08:59 05/14/17 08:47 0.4 MG Docusate Sodium (coLACE CAP) 100 mg BID PO 05/11/17 21:00 06/10/17 20:59 05/14/17 08:47 100 MG Levalbuterol (Xopenex 1.25MG/ 3ML Neb) 1.25 mg Q6R INH 05/11/17 15:00 06/10/17 14:59 05/14/17 14:20 1.25 MG Levalbuterol (Xopenex 0.63 Mg/ 3 Ml Neb) 0.63 mg Q2H PRN INH 05/11/17 13:00 06/10/17 12:59 Heparin Sodium (Porcine) (Heparin 10 Unit/ ml 5 ml Flush) 5 ml PRN PRN FLUSH 05/11/17 13:45 06/10/17 13:44 Nitroglycerin (Nitroglycerin 2% Oint) 1 inch Q6H EXT 05/12/17 08:30 06/11/17 08:29 05/14/17 14:28 1 INCH Collagenase (Santyl Oint) 1 appln DAILY EXT 05/13/17 09:00 06/12/17 08:59 05/14/17 08:46 1 APPLN Miscellaneous Information (Consult Glycemic Management Pharmacy) 1 ea UD PRN N/A 05/13/17 11:30 06/12/17 11:29 Prochlorperazine Edisylate 5 mg/ Syringe 5 ml @ 5 mls/min Q6H PRN IV 05/14/17 07:00 06/13/17 06:59 05/14/17 07:36 5 MLS/MIN Insulin Glargine (Lantus Solostar Pen) 20 units Q12 SC 05/14/17 09:00 06/13/17 08:59 05/14/17 08:52 20 UNITS
[2017-05-14] MEDS: ALLOPURINOL 100 MG TAB PO SCH (20:46)
[2017-05-14] MEDS: ENOXAPARIN 40 MG/0.4 ML SYR SC SCH (20:46)
[2017-05-14] MEDS: ASPIRIN 81 MG ECTAB PO SCH (20:47)
[2017-05-15] VITALS (8 sets, daily range): BP systolic 124–175; BP diastolic 65–85; PULSE 61–75; TEMP 36.5–36.7; O2SAT 90–97
[2017-05-15] MEDS: LEVALBUTEROL 1.25MG/3ML NEB INH SCH ×2 (01:56→07:28)
[2017-05-15] MEDS: PROCHLORPERAZINE INJ 5 MG in SYRINGE 4 ML IV PRN (02:06)
[2017-05-15] MEDS: OXYCODONE/ACETAMINOPHEN 5-325 TAB PO PRN ×3 (02:45→21:20)
[2017-05-15] MEDS: NITROGLYCERIN 2% OINTMENT 30GM TUBE EXT SCH ×4 (02:48→21:02)
[2017-05-15] MEDS: LEVOTHYROXINE 50 MCG TAB PO SCH (06:01)
[2017-05-15] MEDS: INSULIN ASPART 100 UNITS/ML 3 ML PEN SC SCH ×4 (08:43→21:16)
[2017-05-15] MEDS: FLUTICASONE PROPIONATE NA SPR 16 GM BTL SCH (08:45)
[2017-05-15] MEDS: COLLAGENASE OINT 30 GM TUBE EXT SCH (08:45)
[2017-05-15] MEDS: CARVEDILOL 12.5 MG TAB PO SCH ×2 (08:46→21:03)
[2017-05-15] MEDS: TAMSULOSIN HCL 0.4 MG CAP PO SCH (08:46)
[2017-05-15] MEDS: DOCUSATE SODIUM 100 MG CAP PO SCH ×2 (08:46→21:03)
[2017-05-15] MEDS: CLOPIDOGREL BISULFATE 75 MG TAB PO SCH (08:47)
[2017-05-15] MEDS: ATORVASTATIN 40 MG TAB PO SCH (08:47)
[2017-05-15] MEDS: MAGNESIUM OXIDE 400 MG TAB PO SCH (08:47)
[2017-05-15] MEDS: PANTOprazole SOD 40 MG TAB PO SCH ×2 (08:47→21:04)
[2017-05-15] MEDS: INSULIN GLARGINE SOLOSTAR 100 UNITS/ML 3 ML PEN SC SCH ×2 (08:51→21:17)
[2017-05-15 09:55] LABS: CALCIUM 8.4 mg/dl (8.5-10.1); CREATININE 1.36 mg/dl (0.60-1.40); POTASSIUM 3.9 mmol/L (3.5-5.1)
[2017-05-15] MEDS ORDERED: POTASSIUM CHLORIDE 10 MEQ TABCR PO ONE (10:30)
[2017-05-15] MEDS ORDERED: FUROSEMIDE 80 MG TAB PO ONE (10:30)
--- NOTE | 2017-05-15 13:58 | Pharmacy Progress Note ---
Pharmacy Glycemic Short Note 2 Date of Service May 15, 2017. OUTPATIENT ANTIDIABETIC REGIMEN: * Novolin 70/30 80 units BID * (also on prednisone 5 mg BID) ASSESSMENT: 05/14/17 * Patient received a total of 85 units of insulin yesterday * No additional stressors added * Fasting is much improved at 138 mg/dL. Will plan to provide a set dose of basal now that BSGs have improved * Current CF/CR seem appropriate so will continue for now 05/15/17 * Patient received 43 units of insulin yesterday with BSGs ranging from 101-178 mg/dL * His PO intake is minimal and fasting was 101 this AM -> will decrease Lantus by 10% * No change to other causes of insulin resistance PLAN FOR INPATIENT GLYCEMIC CONTROL: * Basal insulin * Decrease Lantus to 18 units BID * Bolus insulin - no change * NovoLog per scale ACHS or Q6hrs while NPO * Goal Range: Low 110 mg/dL - High 140 mg/dL * Correction Factor: 20 mg/dL/unit * Nutritional / Prandial insulin per carb ratio of 1 unit per 8 grams CHO consumed PLAN FOR DISCHARGE: * A1c 8.7% on this admission - slightly above goal for age/comorbidities * Continue outpatient regimen and f/u with PCP for adjustments
--- NOTE | 2017-05-15 14:47 | Progress Note ---
Medicine Progress Note Date & Time of Visit: May 15, 2017 at 14:39. Subjective Pt was seen and examined Sitting at the edge of the bed with no distress Pt said that he feels much better today He said that he was not himself yesterday Denies any chest pain, palpitation, dizziness and SOB Objective Last 8 Hrs Date Time Temp Pulse Resp B/P (MAP) Pulse Ox O2 Delivery O2 Flow Rate FiO2 05/15/17 12:00 Room Air 05/15/17 11:45 36.7 68 18 124/65 (84) 95 2.0 05/15/17 08:00 36.5 75 18 144/85 (104) 90 Room Air 05/15/17 08:00 Room Air 05/15/17 07:28 75 16 95 Nasal Cannula 2.0 Physical Exam: General- No acute distress Head- atraumatic Eyes- PERRL, EOMI ENT- oropharynx clear Neck- supple, no JVD Lungs- clear to auscultation Heart- regular rhythm; +murmur Abdomen- normal bowel sounds, soft Extremities- No calf tenderness, S/p Left AKA, +RLE edema Neuro- alert, oriented x 3; PERRL, EOMI Skin- warm & dry Laboratory Results: Last 24 Hours Test 05/14/17 16:25 05/14/17 20:02 05/15/17 06:54 05/15/17 08:57 Bedside Glucose 126 mg/dl 178 mg/dl 101 mg/dl Sodium Level 139 mmol/L Potassium Level 3.9 mmol/L Chloride Level 102 mmol/L Carbon Dioxide Level 30 mmol/L Anion Gap 7.0 mmol/L Blood Urea Nitrogen 24 mg/dl Creatinine 1.36 mg/dl Est Creatinine Clear Calc Drug Dose 57.1 ml/min Estimated GFR () 59.0 Estimated GFR (Non- 50.9 BUN/Creatinine Ratio 17.6 Random Glucose 116 mg/dl Calcium Level 8.4 mg/dl Test 05/15/17 11:20 Bedside Glucose 128 mg/dl Assessment & Plan CHF / PULMONARY EDEMA Present with SOB on admission Was recently admitted in [place] [facility] for weakness and dehydration. His Bumex was held due to dehydration and received IVF. Chest x-ray on admission consistent with CHF. Elevated pro -BNP Received Lasix 80mg today Clinically improved significantly Will monitor BMP closely If creatine stable will dose for additional lasix tomorrow after lab. Cardiology consult 05/15 Repeat CXR yesterday showed developing congestive heart failure Received Lasix IV 80mg daily in the last 3 days Lasix 80mg PO given today Will reassess later and give additional lasix Case discussed with cardiology recommended to resume his Bumetanide 2 mg BID tomorrow Will follow with [place] cardiology ECHO showed * Ejection Fraction = 55-60%. * There is mild concentric left ventricular hypertrophy. * The base and mid inferior wall is hypokinetic. * The aortic valve is poorly visualized and moderately calcified. * Moderate to severe valvular aortic stenosis. * There is mild mitral regurgitation. * There is mild tricuspid regurgitation. CORONARY ARTERY DISEASE Denies any chest pain Serum troponin peak to 0.060 now trending down to normal, possible related to CHF Recent ECHO showed base and mid inferior wall is hypokinetic. ECHO done at [facility] last weeks showed normal left ventricle wall motion and wall thickness with normal EF Continue aspirin, clopidogrel, carvedilol, nitrates, statin. Continue monitor in tele ARRHYTHMIA EKG showed possible Mobitz type 1 heart block. Continue monitor on telemetry. On carvedilol Stable HYPERTENSION BP stable Continue carvedilol, lisinopril, hydralazine, nitrates. INFLUENZA B Was treating at [place] last week with Tamiflu Continue droplet precaution Stable CKD III Creatine baseline as per discharge Summary from [place] btw 1.8 to 2.2 I called his PCP office his last creatine back in February was 1.5 Creatine on admission 1.91 Creatine improved to 1.3 today Continue avoiding nephrotoxic agents Monitor BMP WEAKNESS Due to acute illness Urine cx no growth blood cx pending PT/OT Fall precaution DM TYPE 2 Recent Hba1c 8.7 On insulin sliding scale and lantus Pharmacy consulted for glycemic management Continue monitor BS HYPOTHYROIDISM Continue levothyroxine. DYSLIPIDEMIA LDL 73 Continue atorvastatin. GOUT Continue allopurinol. RA / CHRONIC STEROID THERAPY Has been on chronic prednisone for many years. Apparently instructed to stop prednisone when discharged at [facility] [place] Received Hydrocortisone x1 Continue prednisone VENOUS STASIS ULCERS RLE No apparent cellulitis. Local care / dressing changes. HISTORY MRSA Contact precautions. RESUSCITATION STATUS FULL CODE VTE PROPHYLAXIS SQ enoxaparin. DISPOSITION Will discharge once medically stable Follow up with PCP at [facility]. Current Inpatient Medications: Current Inpatient Medications Medications (Trade) Dose Ordered Sig/Jim Route Start Time Stop Time Status Last Admin Dose Admin Enoxaparin Sodium (Lovenox Inj) 40 mg Q24H SC 05/11/17 22:00 06/10/17 21:59 05/14/17 20:46 40 MG Acetaminophen (Tylenol Tab) 650 mg Q4H PRN PO 05/11/17 08:00 06/10/17 07:59 Nitroglycerin (Nitrostat Tab) 0.4 mg UD PRN SL 05/11/17 08:00 06/10/17 07:59 Insulin Aspart (novoLOG ASPART) SLIDING SCALE If C... ACHS SC 05/11/17 16:00 06/10/17 15:59 05/15/17 12:16 1 UNITS Glucose (Glucose 40% Gel) 15-30 GRAMS 15 GRAMS... UD PRN PO 05/11/17 09:45 06/10/17 09:44 Glucose (Glucose Chew Tab) 4-8 Tablets 4 Tabl... UD PRN PO 05/11/17 09:45 06/10/17 09:44 Dextrose (Dextrose 50% 50ML Syringe) 25-50ML OF 50% DW IV FOR... UD PRN IV 05/11/17 09:45 06/10/17 09:44 Glucagon (Glucagon Inj) 1 mg UD PRN SQ 05/11/17 09:45 06/10/17 09:44 Allopurinol (Zyloprim Tab) 200 mg HS PO 05/11/17 21:00 06/10/17 20:59 05/14/17 20:46 200 MG Aspirin (Ecotrin Tab) 81 mg HS PO 05/11/17 21:00 06/10/17 20:59 05/14/17 20:47 81 MG Atorvastatin Calcium (Lipitor Tab) 80 mg DAILY PO 05/12/17 09:00 06/11/17 08:59 05/15/17 08:47 80 MG Carvedilol (Coreg Tab) 12.5 mg BID PO 05/11/17 21:00 06/10/17 20:59 05/15/17 08:46 12.5 MG Clopidogrel Bisulfate (plAVix TAB) 75 mg DAILY PO 05/12/17 09:00 06/11/17 08:59 05/15/17 08:47 75 MG Fluticasone Propionate (Flonase Nasal [place]) 1 sprays QAM NA 05/12/17 09:00 06/11/17 08:59 05/15/17 08:45 1 SPRAYS Hydralazine HCl (Apresoline Tab) 25 mg TID PO 05/11/17 14:00 06/10/17 13:59 05/15/17 14:13 25 MG Levothyroxine Sodium (Synthroid Tab) 50 mcg DAILYBB PO 05/12/17 06:00 06/11/17 05:59 05/15/17 06:01 50 MCG Lisinopril (Zestril Tab) 2.5 mg HS PO 05/11/17 21:00 06/10/17 20:59 Future Hold 05/12/17 20:36 2.5 MG Magnesium Oxide (Mag-Ox Tab) 400 mg DAILY PO 05/12/17 09:00 06/11/17 08:59 05/15/17 08:47 400 MG Oxycodone/ Acetaminophen (Percocet 5-325mg Tab) 1 tab Q6H PRN PO 05/11/17 13:00 05/25/17 12:59 05/15/17 12:19 1 TAB Pantoprazole Sodium (Protonix Tab) 40 mg BID PO 05/11/17 21:00 06/10/17 20:59 05/15/17 08:47 40 MG Potassium Chloride (Klor-Con Tab) 20 meq BID PO 05/11/17 21:00 06/10/17 20:59 Future Hold 05/12/17 20:34 20 MEQ Prednisone (PredniSONE TAB) 5 mg BID PO 05/11/17 21:00 06/10/17 20:59 05/15/17 08:47 5 MG Tamsulosin HCl (Flomax Cap) 0.4 mg DAILY PO 05/12/17 09:00 06/11/17 08:59 05/15/17 08:46 0.4 MG Docusate Sodium (coLACE CAP) 100 mg BID PO 05/11/17 21:00 06/10/17 20:59 05/15/17 08:46 100 MG Heparin Sodium (Porcine) (Heparin 10 Unit/ ml 5 ml Flush) 5 ml PRN PRN FLUSH 05/11/17 13:45 06/10/17 13:44 Nitroglycerin (Nitroglycerin 2% Oint) 1 inch Q6H EXT 05/12/17 08:30 06/11/17 08:29 05/15/17 14:13 1 INCH Collagenase (Santyl Oint) 1 appln DAILY EXT 05/13/17 09:00 06/12/17 08:59 05/15/17 08:45 1 APPLN Miscellaneous Information (Consult Glycemic Management Pharmacy) 1 ea UD PRN N/A 05/13/17 11:30 06/12/17 11:29 Prochlorperazine Edisylate 5 mg/ Syringe 5 ml @ 5 mls/min Q6H PRN IV 05/14/17 07:00 06/13/17 06:59 05/15/17 02:06 5 MLS/MIN Insulin Glargine (Lantus Solostar Pen) 18 units Q12 SC 05/15/17 21:00 06/14/17 20:59 Levalbuterol (Xopenex 1.25MG/ 3ML Neb) 1.25 mg Q6H PRN INH 05/15/17 15:00 06/14/17 14:59
[2017-05-15] MEDS ORDERED: LEVALBUTEROL 1.25MG/3ML NEB INH PRN (15:00)
[2017-05-15] MEDS: ALLOPURINOL 100 MG TAB PO SCH (21:05)
[2017-05-15] MEDS: ASPIRIN 81 MG ECTAB PO SCH (21:05)
[2017-05-15] MEDS: ENOXAPARIN 40 MG/0.4 ML SYR SC SCH (21:18)
[2017-05-16] VITALS (9 sets, daily range): BP systolic 110–165; BP diastolic 67–81; PULSE 63–79; TEMP 36.6–37.2; O2SAT 90–100
[2017-05-16] MEDS: NITROGLYCERIN 2% OINTMENT 30GM TUBE EXT SCH ×4 (02:16→19:55)
[2017-05-16] MEDS: LEVOTHYROXINE 50 MCG TAB PO SCH (05:32)
[2017-05-16 06:19] LABS: CREATININE 1.35 mg/dl (0.60-1.40)
[2017-05-16] MEDS ORDERED: FUROSEMIDE 80 MG TAB PO ONE (07:45)
[2017-05-16] MEDS: INSULIN ASPART 100 UNITS/ML 3 ML PEN SC SCH ×3 (08:07→22:16)
[2017-05-16] MEDS: INSULIN GLARGINE SOLOSTAR 100 UNITS/ML 3 ML PEN SC SCH ×2 (08:08→22:17)
[2017-05-16] MEDS: CLOPIDOGREL BISULFATE 75 MG TAB PO SCH (08:11)
[2017-05-16] MEDS: COLLAGENASE OINT 30 GM TUBE EXT SCH (08:11)
[2017-05-16] MEDS: FLUTICASONE PROPIONATE NA SPR 16 GM BTL SCH (08:11)
[2017-05-16] MEDS: DOCUSATE SODIUM 100 MG CAP PO SCH ×2 (08:11→22:08)
[2017-05-16] MEDS: TAMSULOSIN HCL 0.4 MG CAP PO SCH (08:12)
[2017-05-16] MEDS: CARVEDILOL 12.5 MG TAB PO SCH ×2 (08:12→22:06)
[2017-05-16] MEDS: ATORVASTATIN 40 MG TAB PO SCH (08:13)
[2017-05-16] MEDS: MAGNESIUM OXIDE 400 MG TAB PO SCH (08:13)
[2017-05-16] MEDS: PANTOprazole SOD 40 MG TAB PO SCH ×2 (08:13→22:09)
[2017-05-16] MEDS: PROCHLORPERAZINE INJ 5 MG in SYRINGE 4 ML IV PRN (09:16)
[2017-05-16] MEDS: OXYCODONE/ACETAMINOPHEN 5-325 TAB PO PRN (10:58)
--- NOTE | 2017-05-16 11:37 | Pharmacy Progress Note ---
Pharmacy Glycemic Short Note 2 Date of Service May 16, 2017. OUTPATIENT ANTIDIABETIC REGIMEN: * Novolin 70/30 80 units BID * (also on prednisone 5 mg BID) ASSESSMENT: 05/14/17 * Patient received a total of 85 units of insulin yesterday * No additional stressors added * Fasting is much improved at 138 mg/dL. Will plan to provide a set dose of basal now that BSGs have improved * Current CF/CR seem appropriate so will continue for now 05/15/17 * Patient received 43 units of insulin yesterday with BSGs ranging from 101-178 mg/dL * His PO intake is minimal and fasting was 101 this AM -> will decrease Lantus by 10% * No change to other causes of insulin resistance 05/16/17 * Mr. Mcarthur received 47 units of insulin yesterday with BSGs ranging from 133 -206 mg/dL * Fastin mg/dL - Lantus was just decreased last evening for lower fasting yesterday. If this starts to increase, will plan to increase Lantus back to 20 units * Postprandial BSGs yesterday: 128, 150, 206 - with the prednisone on board, he continues to have higher BSGs after dinner * Will plan to tighten CR w/ dinner to alleviate this PLAN FOR INPATIENT GLYCEMIC CONTROL: * Basal insulin * Continue Lantus 18 units BID * Bolus insulin * NovoLog per scale ACHS or Q6hrs while NPO * Goal Range: Low 110 mg/dL - High 140 mg/dL * Correction Factor: 20 mg/dL/unit * Nutritional / Prandial insulin per carb ratio of 1 unit per 8 grams CHO consumed; TIGHTEN to 1 unit per 6 with dinner only PLAN FOR DISCHARGE: * A1c 8.7% on this admission - slightly above goal for age/comorbidities * Continue outpatient regimen and f/u with PCP for adjustments
[2017-05-16] MEDS ORDERED: ONDANSETRON INJ 2 MG/ML 2 ML VIAL IV PRN (12:00)
--- NOTE | 2017-05-16 13:40 | Progress Note ---
Medicine Progress Note Date & Time of Visit: May 16, 2017 at 13:28. Subjective Pt was seen and examined Sitting in bed with no distress Pt said that he was having nausea early He said that he feels better after getting the Zofran He said that his swelling improved significantly Pt said that his breathing feels better Denies any chest pain, palpitation, dizziness and fever Objective Last 8 Hrs Date Time Temp Pulse Resp B/P (MAP) Pulse Ox O2 Delivery O2 Flow Rate FiO2 05/16/17 12:25 36.7 65 18 151/70 (97) 92 Nasal Cannula 05/16/17 08:11 37.2 77 16 165/75 (105) 90 Room Air 05/16/17 08:00 Room Air Physical Exam: General- No acute distress Head- atraumatic Eyes- PERRL, EOMI ENT- oropharynx clear Neck- supple, no JVD Lungs- clear to auscultation Heart- regular rhythm; +murmur Abdomen- normal bowel sounds, soft Extremities- No calf tenderness, S/p Left AKA, +RLE edema Neuro- alert, oriented x 3; PERRL, EOMI Skin- warm & dry Laboratory Results: Last 24 Hours Test 05/15/17 16:43 05/15/17 20:21 05/16/17 05:13 05/16/17 06:47 Bedside Glucose 150 mg/dl 206 mg/dl 133 mg/dl Sodium Level 139 mmol/L Potassium Level 4.0 mmol/L Chloride Level 100 mmol/L Carbon Dioxide Level 31 mmol/L Anion Gap 8.0 mmol/L Blood Urea Nitrogen 22 mg/dl Creatinine 1.35 mg/dl Est Creatinine Clear Calc Drug Dose 57.5 ml/min Estimated GFR () 59.5 Estimated GFR (Non- 51.4 BUN/Creatinine Ratio 16.5 Random Glucose 146 mg/dl Calcium Level 8.0 mg/dl Test 05/16/17 11:05 Bedside Glucose 163 mg/dl Assessment & Plan CHF / PULMONARY EDEMA Present with SOB on admission Was recently admitted in [place] for weakness and dehydration. His Bumex was held due to dehydration and received IVF. Chest x-ray on admission consistent with CHF. Elevated pro -BNP Received Lasix 80mg today Clinically improved significantly Will monitor BMP closely If creatine stable will dose for additional lasix tomorrow after lab. Cardiology consult 05/16 Repeat CXR yesterday showed developing congestive heart failure Received Lasix IV 80mg daily in the last 3 days Lasix 80mg PO given today Diuresis well, negative 9L Will give additional lasix later Case discussed with cardiology recommended to resume his Bumetanide 2 mg BID tomorrow He will follow with [place] cardiology ECHO showed * Ejection Fraction = 55-60%. * There is mild concentric left ventricular hypertrophy. * The base and mid inferior wall is hypokinetic. * The aortic valve is poorly visualized and moderately calcified. * Moderate to severe valvular aortic stenosis. * There is mild mitral regurgitation. * There is mild tricuspid regurgitation. CORONARY ARTERY DISEASE Denies any chest pain Serum troponin peak to 0.060 now trending down to normal, possible related to CHF Recent ECHO showed base and mid inferior wall is hypokinetic. ECHO done at [place] last weeks showed normal left ventricle wall motion and wall thickness with normal EF Continue aspirin, clopidogrel, carvedilol, nitrates, statin. Continue monitor in tele ARRHYTHMIA EKG showed possible Mobitz type 1 heart block. Continue monitor on telemetry. On carvedilol Stable HYPERTENSION BP stable Continue carvedilol, lisinopril, hydralazine, nitrates. INFLUENZA B Was treating at [place] last week with Tamiflu Continue droplet precaution Stable CKD III Creatine baseline as per discharge Summary from [place] btw 1.8 to 2.2 I called his PCP office his last creatine back in February was 1.5 Creatine on admission 1.91 Creatine improved to 1.3 today Continue avoiding nephrotoxic agents Monitor BMP WEAKNESS Due to acute illness Urine cx no growth blood cx pending PT/OT Fall precaution DM TYPE 2 Recent Hba1c 8.7 On insulin sliding scale and lantus Pharmacy consulted for glycemic management Continue monitor BS HYPOTHYROIDISM Continue levothyroxine. DYSLIPIDEMIA LDL 73 Continue atorvastatin. GOUT Continue allopurinol. RA / CHRONIC STEROID THERAPY Has been on chronic prednisone for many years. Apparently instructed to stop prednisone when discharged at [place] Received Hydrocortisone x1 Continue prednisone VENOUS STASIS ULCERS RLE No apparent cellulitis. Local care / dressing changes. HISTORY MRSA Contact precautions. RESUSCITATION STATUS FULL CODE VTE PROPHYLAXIS SQ enoxaparin. DISPOSITION Will discharge once medically stable Follow up with PCP at [facility]. Current Inpatient Medications: Current Inpatient Medications Medications (Trade) Dose Ordered Sig/Jim Route Start Time Stop Time Status Last Admin Dose Admin Enoxaparin Sodium (Lovenox Inj) 40 mg Q24H SC 05/11/17 22:00 06/10/17 21:59 05/15/17 21:18 40 MG Acetaminophen (Tylenol Tab) 650 mg Q4H PRN PO 05/11/17 08:00 06/10/17 07:59 Nitroglycerin (Nitrostat Tab) 0.4 mg UD PRN SL 05/11/17 08:00 06/10/17 07:59 Glucose (Glucose 40% Gel) 15-30 GRAMS 15 GRAMS... UD PRN PO 05/11/17 09:45 06/10/17 09:44 Glucose (Glucose Chew Tab) 4-8 Tablets 4 Tabl... UD PRN PO 05/11/17 09:45 06/10/17 09:44 Dextrose (Dextrose 50% 50ML Syringe) 25-50ML OF 50% DW IV FOR... UD PRN IV 05/11/17 09:45 06/10/17 09:44 Glucagon (Glucagon Inj) 1 mg UD PRN SQ 05/11/17 09:45 06/10/17 09:44 Allopurinol (Zyloprim Tab) 200 mg HS PO 05/11/17 21:00 06/10/17 20:59 05/15/17 21:05 200 MG Aspirin (Ecotrin Tab) 81 mg HS PO 05/11/17 21:00 06/10/17 20:59 05/15/17 21:05 81 MG Atorvastatin Calcium (Lipitor Tab) 80 mg DAILY PO 05/12/17 09:00 06/11/17 08:59 05/16/17 08:13 80 MG Carvedilol (Coreg Tab) 12.5 mg BID PO 05/11/17 21:00 06/10/17 20:59 05/16/17 08:12 12.5 MG Clopidogrel Bisulfate (plAVix TAB) 75 mg DAILY PO 05/12/17 09:00 06/11/17 08:59 05/16/17 08:11 75 MG Fluticasone Propionate (Flonase Nasal [place]) 1 sprays QAM NA 05/12/17 09:00 06/11/17 08:59 05/16/17 08:11 1 SPRAYS Hydralazine HCl (Apresoline Tab) 25 mg TID PO 05/11/17 14:00 06/10/17 13:59 05/16/17 08:11 25 MG Levothyroxine Sodium (Synthroid Tab) 50 mcg DAILYBB PO 05/12/17 06:00 06/11/17 05:59 05/16/17 05:32 50 MCG Lisinopril (Zestril Tab) 2.5 mg HS PO 05/11/17 21:00 06/10/17 20:59 Future Hold 05/12/17 20:36 2.5 MG Magnesium Oxide (Mag-Ox Tab) 400 mg DAILY PO 05/12/17 09:00 06/11/17 08:59 05/16/17 08:13 400 MG Oxycodone/ Acetaminophen (Percocet 5-325mg Tab) 1 tab Q6H PRN PO 05/11/17 13:00 05/25/17 12:59 05/16/17 10:58 1 TAB Pantoprazole Sodium (Protonix Tab) 40 mg BID PO 05/11/17 21:00 06/10/17 20:59 05/16/17 08:13 40 MG Potassium Chloride (Klor-Con Tab) 20 meq BID PO 05/11/17 21:00 06/10/17 20:59 Future Hold 05/12/17 20:34 20 MEQ Prednisone (PredniSONE TAB) 5 mg BID PO 05/11/17 21:00 06/10/17 20:59 05/16/17 08:13 5 MG Tamsulosin HCl (Flomax Cap) 0.4 mg DAILY PO 05/12/17 09:00 06/11/17 08:59 05/16/17 08:12 0.4 MG Docusate Sodium (coLACE CAP) 100 mg BID PO 05/11/17 21:00 06/10/17 20:59 05/16/17 08:11 100 MG Heparin Sodium (Porcine) (Heparin 10 Unit/ ml 5 ml Flush) 5 ml PRN PRN FLUSH 05/11/17 13:45 06/10/17 13:44 Nitroglycerin (Nitroglycerin 2% Oint) 1 inch Q6H EXT 05/12/17 08:30 06/11/17 08:29 05/16/17 08:18 1 INCH Collagenase (Santyl Oint) 1 appln DAILY EXT 05/13/17 09:00 06/12/17 08:59 05/16/17 08:11 1 APPLN Miscellaneous Information (Consult Glycemic Management Pharmacy) 1 ea UD PRN N/A 05/13/17 11:30 06/12/17 11:29 Prochlorperazine Edisylate 5 mg/ Syringe 5 ml @ 5 mls/min Q6H PRN IV 05/14/17 07:00 06/13/17 06:59 05/16/17 09:16 5 MLS/MIN Insulin Glargine (Lantus Solostar Pen) 18 units Q12 SC 05/15/17 21:00 06/14/17 20:59 05/16/17 08:08 18 UNITS Levalbuterol (Xopenex 1.25MG/ 3ML Neb) 1.25 mg Q6H PRN INH 05/15/17 15:00 06/14/17 14:59 Insulin Aspart (novoLOG ASPART) SLIDING SCALE If C... TID@0700,1100,2100 RI 05/16/17 11:00 06/15/17 10:59 05/16/17 12:32 2 UNITS Insulin Aspart (novoLOG ASPART) SLIDING SCALE If C... DAILY@1615 RI 05/16/17 16:15 06/15/17 16:14
[2017-05-16] MEDS ORDERED: INSULIN ASPART 100 UNITS/ML 3 ML PEN SC SCH (16:15)
[2017-05-16] MEDS: BUMETANIDE 1 MG TAB PO SCH (17:20)
[2017-05-16] MEDS ORDERED: FUROSEMIDE INJ 40 MG in SYRINGE 0 ML IV ONE (18:00)
[2017-05-16] MEDS: ENOXAPARIN 40 MG/0.4 ML SYR SC SCH (22:04)
[2017-05-16] MEDS: ALLOPURINOL 100 MG TAB PO SCH (22:05)
[2017-05-16] MEDS: ASPIRIN 81 MG ECTAB PO SCH (22:11)
[2017-05-17] MEDS: NITROGLYCERIN 2% OINTMENT 30GM TUBE EXT SCH ×3 (02:34→14:27)
[2017-05-17 04:32] VITALS: BP 144/73; PULSE 92; TEMP 36.9; O2SAT 91
[2017-05-17] MEDS: LEVOTHYROXINE 50 MCG TAB PO SCH (05:53)
[2017-05-17 08:39] VITALS: BP 116/56; PULSE 72; TEMP 36.6; O2SAT 94
[2017-05-17] MEDS: INSULIN ASPART 100 UNITS/ML 3 ML PEN SC SCH ×2 (08:46→12:23)
[2017-05-17] MEDS: FLUTICASONE PROPIONATE NA SPR 16 GM BTL SCH (08:51)
[2017-05-17] MEDS: COLLAGENASE OINT 30 GM TUBE EXT SCH (08:51)
[2017-05-17] MEDS: BUMETANIDE 1 MG TAB PO SCH (08:52)
[2017-05-17] MEDS: CARVEDILOL 12.5 MG TAB PO SCH (08:53)
[2017-05-17] MEDS: DOCUSATE SODIUM 100 MG CAP PO SCH (08:53)
[2017-05-17] MEDS: TAMSULOSIN HCL 0.4 MG CAP PO SCH (08:54)
[2017-05-17] MEDS: CLOPIDOGREL BISULFATE 75 MG TAB PO SCH (08:55)
[2017-05-17] MEDS: MAGNESIUM OXIDE 400 MG TAB PO SCH (08:55)
[2017-05-17] MEDS: PANTOprazole SOD 40 MG TAB PO SCH (08:55)
[2017-05-17] MEDS: ATORVASTATIN 40 MG TAB PO SCH (08:55)
[2017-05-17] MEDS ORDERED: INSULIN GLARGINE SOLOSTAR 100 UNITS/ML 3 ML PEN SC SCH (09:00)
[2017-05-17 09:42] LABS: CALCIUM 8.3 mg/dl (8.5-10.1); CREATININE 1.38 mg/dl (0.60-1.40); POTASSIUM 3.6 mmol/L (3.5-5.1)
[2017-05-17 12:02] VITALS: BP 121/53; PULSE 68; TEMP 36.7; O2SAT 92
--- NOTE | 2017-05-17 13:46 | Pharmacy Progress Note ---
Pharmacy Glycemic Short Note 2 Date of Service May 17, 2017. OUTPATIENT ANTIDIABETIC REGIMEN: * Novolin 70/30 80 units BID * (also on prednisone 5 mg BID) ASSESSMENT: 05/14/17 * Patient received a total of 85 units of insulin yesterday * No additional stressors added * Fasting is much improved at 138 mg/dL. Will plan to provide a set dose of basal now that BSGs have improved * Current CF/CR seem appropriate so will continue for now 05/15/17 * Patient received 43 units of insulin yesterday with BSGs ranging from 101-178 mg/dL * His PO intake is minimal and fasting was 101 this AM -> will decrease Lantus by 10% * No change to other causes of insulin resistance 05/16/17 * Mr. Mcarthur received 47 units of insulin yesterday with BSGs ranging from 133 -206 mg/dL * Fastin mg/dL - Lantus was just decreased last evening for lower fasting yesterday. If this starts to increase, will plan to increase Lantus back to 20 units * Postprandial BSGs yesterday: 128, 150, 206 - with the prednisone on board, he continues to have higher BSGs after dinner * Will plan to tighten CR w/ dinner to alleviate this 05/17/17 * Mr. Mcarthur received 47 units of insulin yesterday * No change to causes of insulin resistance * Fastin mg/dL - this is steadily rising, will increase only slightly to 19 units BID since 20 units seemed to be too much * Postprandial BSGs yesterday: 163, 169, 189 - looking much better with the tightened CR with dinner but could be tightened overall PLAN FOR INPATIENT GLYCEMIC CONTROL: * Basal insulin * Increase Lantus slightly to 19 units BID * Bolus insulin * NovoLog per scale ACHS or Q6hrs while NPO * Goal Range: Low 110 mg/dL - High 140 mg/dL * Correction Factor: 20 mg/dL/unit * Nutritional / Prandial insulin per carb ratio of TIGHTEN to 1 unit per 7 grams CHO consumed; continue tightened further CF of 1 unit per 6 with dinner only PLAN FOR DISCHARGE: * A1c 8.7% on this admission - slightly above goal for age/comorbidities * Continue outpatient regimen and f/u with PCP for adjustments
--- NOTE | 2017-05-17 15:03 | Progress Note ---
Medicine Progress Note Date & Time of Visit: May 17, 2017 at 14:56. Subjective Pt was seen and examined Sitting at the edge of the bed with no distress He said that he feels much better He said that his breathing feels better He said that when he came he was swollen and now his swelling improves significantly Denies any chest pain, palpitation, dizziness and SOB Objective Last 8 Hrs Date Time Temp Pulse Resp B/P (MAP) Pulse Ox O2 Delivery O2 Flow Rate FiO2 05/17/17 12:02 36.7 68 16 121/53 (75) 92 Nasal Cannula 05/17/17 12:00 Room Air 05/17/17 08:39 36.6 72 16 116/56 (76) 94 Nasal Cannula 05/17/17 08:00 Room Air Physical Exam: General- No acute distress Head- atraumatic Eyes- PERRL, EOMI ENT- oropharynx clear Neck- supple, no JVD Lungs- clear to auscultation Heart- regular rhythm; +murmur Abdomen- normal bowel sounds, soft Extremities- No calf tenderness, S/p Left AKA, +RLE edema (Improved) Neuro- alert, oriented x 3; PERRL, EOMI Skin- warm & dry Laboratory Results: Last 24 Hours Test 05/16/17 15:58 05/16/17 20:00 05/17/17 06:37 05/17/17 08:46 Bedside Glucose 169 mg/dl 189 mg/dl 154 mg/dl Sodium Level 140 mmol/L Potassium Level 3.6 mmol/L Chloride Level 96 mmol/L Carbon Dioxide Level 36 mmol/L Anion Gap 8.0 mmol/L Blood Urea Nitrogen 21 mg/dl Creatinine 1.38 mg/dl Est Creatinine Clear Calc Drug Dose 54.2 ml/min Estimated GFR () 58.0 Estimated GFR (Non- 50.0 BUN/Creatinine Ratio 15.1 Random Glucose 166 mg/dl Calcium Level 8.3 mg/dl Test 05/17/17 11:34 Bedside Glucose 148 mg/dl Assessment & Plan CHF / PULMONARY EDEMA Present with SOB on admission Was recently admitted in [place] for weakness and dehydration. His Bumex was held due to dehydration and received IVF. Chest x-ray on admission consistent with CHF. Elevated pro -BNP Received Lasix 80mg today Clinically improved significantly Will monitor BMP closely If creatine stable will dose for additional lasix tomorrow after lab. Cardiology consult 05/17 Repeat CXR showed developing congestive heart failure Received Lasix IV 80mg, than oral lasix Starting on home diuresis bumetanide 2mg last night Diuresis well, negative for 13L Advised pt to resume his bumetanide tonight case discussed with cardiology and agreed with the plan He will follow with [place] cardiology within 1 week ECHO showed * Ejection Fraction = 55-60%. * There is mild concentric left ventricular hypertrophy. * The base and mid inferior wall is hypokinetic. * The aortic valve is poorly visualized and moderately calcified. * Moderate to severe valvular aortic stenosis. * There is mild mitral regurgitation. * There is mild tricuspid regurgitation. CORONARY ARTERY DISEASE Denies any chest pain Serum troponin peak to 0.060 now trending down to normal, possible related to CHF Recent ECHO showed base and mid inferior wall is hypokinetic. ECHO done at [place] last weeks showed normal left ventricle wall motion and wall thickness with normal EF Continue aspirin, clopidogrel, carvedilol, nitrates, statin. Continue monitor in tele ARRHYTHMIA EKG showed possible Mobitz type 1 heart block. Continue monitor on telemetry. On carvedilol Stable HYPERTENSION BP stable Continue carvedilol, lisinopril, hydralazine, nitrates. INFLUENZA B Was treating at [place] last week with Tamiflu Continue droplet precaution Stable CKD III Creatine baseline as per discharge Summary from [place] btw 1.8 to 2.2 I called his PCP office his last creatine back in February was 1.5 Creatine on admission 1.91 Creatine improved to 1.3 Continue avoiding nephrotoxic agents Monitor BMP WEAKNESS Due to acute illness Urine cx no growth blood cx no growth Fall precaution DM TYPE 2 Recent Hba1c 8.7 On insulin sliding scale and lantus Pharmacy consulted for glycemic management Continue monitor BS HYPOTHYROIDISM Continue levothyroxine. DYSLIPIDEMIA LDL 73 Continue atorvastatin. GOUT Continue allopurinol. RA / CHRONIC STEROID THERAPY Has been on chronic prednisone for many years. Apparently instructed to stop prednisone when discharged at [place] Received Hydrocortisone x1 Continue prednisone VENOUS STASIS ULCERS RLE No apparent cellulitis. Local care / dressing changes. HISTORY MRSA Contact precautions. RESUSCITATION STATUS FULL CODE VTE PROPHYLAXIS SQ enoxaparin. DISPOSITION Discharge home today Follow up with PCP at [facility]. Follow up with [place] [facility] Current Inpatient Medications: Current Inpatient Medications Medications (Trade) Dose Ordered Sig/Jim Route Start Time Stop Time Status Last Admin Dose Admin Enoxaparin Sodium (Lovenox Inj) 40 mg Q24H SC 05/11/17 22:00 06/10/17 21:59 05/16/17 22:04 40 MG Acetaminophen (Tylenol Tab) 650 mg Q4H PRN PO 05/11/17 08:00 06/10/17 07:59 Nitroglycerin (Nitrostat Tab) 0.4 mg UD PRN SL 05/11/17 08:00 06/10/17 07:59 Glucose (Glucose 40% Gel) 15-30 GRAMS 15 GRAMS... UD PRN PO 05/11/17 09:45 06/10/17 09:44 Glucose (Glucose Chew Tab) 4-8 Tablets 4 Tabl... UD PRN PO 05/11/17 09:45 06/10/17 09:44 Dextrose (Dextrose 50% 50ML Syringe) 25-50ML OF 50% DW IV FOR... UD PRN IV 05/11/17 09:45 06/10/17 09:44 Glucagon (Glucagon Inj) 1 mg UD PRN SQ 05/11/17 09:45 06/10/17 09:44 Allopurinol (Zyloprim Tab) 200 mg HS PO 05/11/17 21:00 06/10/17 20:59 05/16/17 22:05 200 MG Aspirin (Ecotrin Tab) 81 mg HS PO 05/11/17 21:00 06/10/17 20:59 05/16/17 22:11 81 MG Atorvastatin Calcium (Lipitor Tab) 80 mg DAILY PO 05/12/17 09:00 06/11/17 08:59 05/17/17 08:55 80 MG Carvedilol (Coreg Tab) 12.5 mg BID PO 05/11/17 21:00 06/10/17 20:59 05/17/17 08:53 12.5 MG Clopidogrel Bisulfate (plAVix TAB) 75 mg DAILY PO 05/12/17 09:00 06/11/17 08:59 05/17/17 08:55 75 MG Fluticasone Propionate (Flonase Nasal [place]) 1 sprays QAM NA 05/12/17 09:00 06/11/17 08:59 05/17/17 08:51 1 SPRAYS Hydralazine HCl (Apresoline Tab) 25 mg TID PO 05/11/17 14:00 06/10/17 13:59 05/17/17 14:27 25 MG Levothyroxine Sodium (Synthroid Tab) 50 mcg DAILYBB PO 05/12/17 06:00 06/11/17 05:59 05/17/17 05:53 50 MCG Lisinopril (Zestril Tab) 2.5 mg HS PO 05/11/17 21:00 06/10/17 20:59 Future Hold 05/12/17 20:36 2.5 MG Magnesium Oxide (Mag-Ox Tab) 400 mg DAILY PO 05/12/17 09:00 06/11/17 08:59 05/17/17 08:55 400 MG Oxycodone/ Acetaminophen (Percocet 5-325mg Tab) 1 tab Q6H PRN PO 05/11/17 13:00 05/25/17 12:59 05/16/17 10:58 1 TAB Pantoprazole Sodium (Protonix Tab) 40 mg BID PO 05/11/17 21:00 06/10/17 20:59 05/17/17 08:55 40 MG Potassium Chloride (Klor-Con Tab) 20 meq BID PO 05/11/17 21:00 06/10/17 20:59 Future Hold 05/12/17 20:34 20 MEQ Prednisone (PredniSONE TAB) 5 mg BID PO 05/11/17 21:00 06/10/17 20:59 05/17/17 08:55 5 MG Tamsulosin HCl (Flomax Cap) 0.4 mg DAILY PO 05/12/17 09:00 06/11/17 08:59 05/17/17 08:54 0.4 MG Docusate Sodium (coLACE CAP) 100 mg BID PO 05/11/17 21:00 06/10/17 20:59 05/17/17 08:53 100 MG Heparin Sodium (Porcine) (Heparin 10 Unit/ ml 5 ml Flush) 5 ml PRN PRN FLUSH 05/11/17 13:45 06/10/17 13:44 Nitroglycerin (Nitroglycerin 2% Oint) 1 inch Q6H EXT 05/12/17 08:30 06/11/17 08:29 05/17/17 08:49 1 INCH Collagenase (Santyl Oint) 1 appln DAILY EXT 05/13/17 09:00 06/12/17 08:59 05/17/17 08:51 1 APPLN Miscellaneous Information (Consult Glycemic Management Pharmacy) 1 ea UD PRN N/A 05/13/17 11:30 06/12/17 11:29 Prochlorperazine Edisylate 5 mg/ Syringe 5 ml @ 5 mls/min Q6H PRN IV 05/14/17 07:00 06/13/17 06:59 05/16/17 09:16 5 MLS/MIN Levalbuterol (Xopenex 1.25MG/ 3ML Neb) 1.25 mg Q6H PRN INH 05/15/17 15:00 06/14/17 14:59 Insulin Aspart (novoLOG ASPART) SLIDING SCALE If C... TID@0700,1100,2100 SC 05/16/17 11:00 06/15/17 10:59 05/17/17 12:23 2 UNITS Insulin Aspart (novoLOG ASPART) SLIDING SCALE If C... DAILY@1615 SC 05/16/17 16:15 06/15/17 16:14 05/16/17 17:20 2 UNITS Bumetanide (Bumex Tab) 2 mg BID17 PO 05/16/17 17:30 06/15/17 17:29 05/17/17 08:52 2 MG Insulin Glargine (Lantus Solostar Pen) 19 units Q12 SC 05/17/17 09:00 06/16/17 08:59 05/17/17 08:46 19 UNITS
--- NOTE | 2017-05-17 15:18 | Discharge Instructions ---
Discharge Instructions Date of Service May 17, 2017. Admission Reason for Admission: Acute Chf Discharge Discharge Diagnosis / Problem: Acute decompensated Heart Failure, CORONARY ARTERY DISEASE Discharge Goals Goal(s): Decrease discomfort, Improve function, Improve disease control Activity Recommendations Activity Limitations: resume your previous activity (as tolerated) . Instructions / Follow-Up Instructions / Follow-Up Discharge home with home health services Follow up with your primary care provider at [facility] ( Please call to schedule appointment within 1 week) Follow up with your cardiology at [place] ( Please call to schedule appointment within 1 week) Follow a low salt diet Prednisone decreased to 5 mg daily Continue monitor blood sugar Check BMP in 1 week to monitor electrolytes and kidney function Fall precaution Physical therapy Call your Primary Care doctor if any of the following symptoms or problems start or get worse: * Shortness of breath or difficulty breathing * Wake up at night short of breath * Chest pain * Cough * Swelling of your hands, feet, or legs * More fatigued or tired with your normal activity * Palpitations - sudden fast heart beats WEIGHT * Weigh yourself every morning after using the bathroom. * Use the same scale. * Wear the same amount of clothing. * Write your weight down on a chart. * Call your Primary Care doctor if you gain more than 2-3 pounds in 1-2 days. MEDICATIONS * Use this discharge instruction sheet for medication instructions. * Take your medications at the time your doctor ordered. * Do not skip a dose of your medicines. * If you miss a dose of medicine, take it as soon as possible, but DO NOT DOUBLE A DOSE. * Read your medicine information when you get home. * Know all of the side effects of your medicine. If in doubt, ask your pharmacist * Call your Primary Care doctor's office if you have any side effects. * Be sure all of your doctors know what medicine and herbs you take (including cold, flu, and herbal medicine). Take the following with you to your follow-up doctor appointments: * Weight Chart * Medication List * List of questions Do not drink excessive alcohol, beer or wine. Current Hospital Diet Patient's current hospital diet: AHA Diet (Heart Healthy), Diabetes Type 2 Diet Discharge Diet Recommended Diet: AHA Diet (Heart Healthy), Low Sodium Diet (2gm Na), Diabetes Type 2 Diet Pending Studies Studies pending at discharge: no Laboratory Results Hemoglobin A1c Test 05/12/17 05:41 Range/Units Estimated Average Glucose 203 mg/dl Hemoglobin A1c 8.7 H 4.5-5.6 % Lipid Panel Test 05/12/17 05:41 Range/Units Triglycerides Level 205 H 0-150 mg/dl Cholesterol Level 136 0-200 mg/dl HDL Cholesterol 22 mg/dl Cholesterol/HDL Ratio 6.2 LDL Cholesterol, Calculated 73 mg/dl Medical Emergencies . Who to Call and When: Call 911 or go to the Emergency Room if: * If at any time you feel your situation is an emergency * You have tightness or pain in your chest that does not go away with rest or Nitroglycerin * You are very short of breath even with rest . Non-Emergent Contact Non-Emergency issues call your: Primary Care Provider, Senior Auditor Call Non-Emergent contact if: you have any medication questions . . "Provider Documentation" section prepared by Chelle Irving. . VTE Core Measure Inpt VTE Proph given/why not?: Enoxaparin (Lovenox)SQ
[2017-05-17 15:27] VITALS: BP 121/53; PULSE 68; TEMP 36.7; O2SAT 92
--- NOTE | 2017-05-18 07:50 | Discharge Summary ---
Discharge Summary Date of Service May 18, 2017. Discharge Summary Admission Date: May 11, 2017 at 08:01 Discharge Date: May 17, 2017 Discharge Disposition: Home with services Principal Diagnosis: Acute decompensated Heart Failure Secondary Diagnoses/Problems: CORONARY ARTERY DISEASE HYPERTENSION DM Type 2 ARRHYTHMIA RA / CHRONIC STEROID THERAPY WEAKNESS GOUT CKD III HYPOTHYROIDISM VENOUS STASIS ULCERS RLE Procedures: ECHO Interpretation Summary * Name: OZZIE CHA Study Date: 05/11/2017 01:34 PM BP: 124/80 mmHg * Patient Location: [facility] [place]\\S\\[facility]\\S\\1 HR: 73 * : 1940 (M/d/yyyy) Gender: Male Height: 71 in * Age: 76 yrs Ethnicity: [place] Weight: 216 lb * Ordering Physician: Mohamud Aceves * Referring Physician: Self, Referred * Performed By: Uziel Caruso RCS * * Reason For Study: CHF * BSA: 2.2 m2 * The study was technically limited. * The study was technically difficult. * -- Conclusions -- * Ejection Fraction = 55-60%. * There is mild concentric left ventricular hypertrophy. * The base and mid inferior wall is hypokinetic. * The aortic valve is poorly visualized and moderately calcified. * Moderate to severe valvular aortic stenosis. * There is mild mitral regurgitation. * There is mild tricuspid regurgitation. Procedure Details * A complete two-dimensional transthoracic echocardiogram was performed (2D, M- mode, Doppler and color flow Doppler). * There were technical limitations due to patient'spoor positioning * A contrast injection of Definity was performed to improve assessment of LV function. * Contrast was injected into an intravenous site in the right arm. * One vial of Definity ultrasound contrast was diluted in normal saline to a total volume of 10 ml. A total of '1' ml of solution was administered during imaging. * Lot # [id number] of Definity utilized for procedure. * Expiration date . * The attending nurse who injected the contrast agent was Rena Balderas RN. Left Ventricle * The left ventricle is normal in size. * There is no thrombus. * There is mild concentric left ventricular hypertrophy. * Left ventricular systolic function is normal. * Ejection Fraction = 55-60%. * The base and mid inferior wall is hypokinetic. Right Ventricle * The right ventricle is normal size. * The right ventricular systolic function is normal as assessed by tricuspid annular plane systolic excursion (TAPSE) (normal >1.5 cm). Atria * The left atrium is moderately dilated. * Right atrial size is normal. * There is no evidence of atrial septal defect, but resolution does not allow assessment for a patent foramen ovale. Mitral Valve * The mitral valve is normal. * There is no mitral valve stenosis. * There is mild mitral regurgitation. Tricuspid Valve * The tricuspid valve is normal. * There is no tricuspid stenosis. * There is mild tricuspid regurgitation. * Doppler findings do not suggest pulmonary hypertension. Aortic Valve * The aortic valve is poorly visualized and moderately calcified. * Moderate to severe valvular aortic stenosis. * There is no significant aortic regurgitation. Pulmonic Valve * The pulmonary valve is not well seen, but the Doppler examination is normal without significant regurgitation or stenosis. Great Vessels * The aortic root and proximal ascending aorta are normal sized. Pericardium/Pleural * There is no pericardial effusion. Great Vessels * Normal inferior vena cava diameter and respiratory variation suggests normal central venous pressure. Left Ventricular Diastolic Function * Diastolic dysfunction, Grade II (pseudonormalization pattern). ABDOMEN 2VIEW W/PA CHEST RTN CLINICAL HISTORY: abdominal distended/Nausea pain COMPARISON STUDY: 05/13/2017 FINDINGS: Increased pulmonary vasculature. Diaphragms are smooth. Heart is top limits normal in size. Bowel pattern is nonobstructive. Degenerative changes of the lumbar spine as well as hips bilaterally. IMPRESSION: Nonobstructive bowel pattern. 2. Developing congestive heart failure The above report was generated using voice recognition software. It may contain grammatical, syntax or spelling errors. Electronically signed by: Van Moreno M.D. Medication Reconciliation Continued Medications: Acetaminophen (Tylenol) 325 Mg Tab 325 MG PO Q6H PRN for Pain, TAB Albuterol Sulf (Proventil 0.083% 2.5MG/3ML) 2.5 Mg/3 Ml Nebu 2.5 MG INH QID PRN for Shortness of Breath Allopurinol (Allopurinol) 100 Mg Tab 2 TABS PO HS Aspirin (Aspirin Ec) 81 Mg Tab 81 MG PO HS Atorvastatin (Lipitor) 80 Mg Tab 80 MG PO DAILY Was discontinued during [facility] hospitalization last week. Bumetanide (Bumetanide) 1 Mg Tab 2 TABS PO BID Carvedilol (Carvedilol) 12.5 Mg Tab 12.5 MG PO BID Cholecalciferol (Vitamin D3) 1,000 Unit Tab 1 TAB PO DAILY for 30 Days, #30 TAB 5 Refills Clopidogrel (Plavix) 75 Mg Tab 75 MG PO DAILY Docusate Sodium (Docusate Sodium) 100 Mg Tab 100 MG PO BID Fluticasone Propionate (Nasal) (Allergy Nasal [place] 24 Ho) 50 Mcg/Act Spr 100 MCG NA QAM Hydralazine Hcl (Apresoline) 25 Mg Tab 25 MG PO TID Insulin Human Isophan/Regular (Novolin 70/30) Inj 80 UNITS SC BID Isosorbide Mononitrate (Isosorbide Mononitrate ER) 30 Mg Tabcr 30 MG PO QAM Levothyroxine Sodium (Synthroid) 50 Mcg Tab 1 TAB PO DAILY Lisinopril (Lisinopril) 2.5 Mg Tab 2.5 MG PO HS Magnesium Oxide (Mag-Ox) 400 Mg Tab 400 MG PO DAILY Multivitamin (Multivitamin) Tab 1 TAB PO DAILY Nitroglycerin (Nitrostat) 0.4 Mg Tab 0.4 MG SL PRN Oxycodone/Acetaminophen 5MG/325MG (Percocet 5MG/325MG) Tab 1 TABLET PO Q6H PRN for Pain PAIN Pantoprazole (Protonix) 40 Mg Tab 40 MG PO BID Potassium Ext Rel (Klor-Con) 20 Meq Tabcr 20 MEQ PO DAILY, TAB Was discontinued during [facility] hospitalization last week. Prednisone (Prednisone) 5 Mg Tab 5 MG PO DAILY Was discontinued during [facility] hospitalization last week. Tamsulosin Hcl (Flomax) 0.4 Mg Cap 0.4 MG PO DAILY Admission Information HPI (per Admitting provider): 76 YO male followed by Dr. Hawthorne for primary care and Dr. Koenig in [place] for Cardiology. History of ischemic heart disease, CHF, and other problems noted below. Admitted to [facility] about 1 week ago with influenza. Discharged to home yesterday. Very short of breath and confused during the night. Family brought him to ED this morning. BiPAP applied for ventilatory support. History was primarily obtained from pt's because of his condition in the ED. No apparent chest pain. No apparent fever. Occasional cough. No apparent nausea, vomiting, diarrhea. . Physical Exam (per Admitting): General Appearance: + moderate distress, + obese Head: normocephalic, atraumatic Eyes: PERRL, EOMI, sclerae normal ENT: + pertinent finding (no thrush; wearing BiPAP facial mask) Neck: supple, no adenopathy, thyroid normal, trachea midline Respiratory/Chest: + respiratory distress, + rales, + rhonchi, + wheezing Cardiovascular: regular rate, rhythm, + systolic murmur (III/ sys murmur LSB + base), + pertinent finding (neck veins difficult to assess) Abdomen/GI: normal bowel sounds, non tender, soft, no organomegaly Extremities/Musculoskelatal: + pertinent finding (s/p left AKA; s/p right transmet ampuation; 3+ edema RLE with derm findings as noted below) Neurologic/Psych: + disoriented, + pertinent finding (PERRL, EOMI; moves all extremities) Skin: warm/dry, + pertinent finding (erythema and venous stasis ulcers right lower extremity) Lymphatic: no adenopathy (cervical ) Hospital Course CHF / PULMONARY EDEMA Present with SOB on admission Was recently admitted in [place] for weakness and dehydration. His Bumex was held due to dehydration and received IVF. Chest x-ray on admission consistent with CHF. Elevated pro -BNP Received Lasix 80mg today Clinically improved significantly Will monitor BMP closely If creatine stable will dose for additional lasix tomorrow after lab. Cardiology consult 05/17 Repeat CXR showed developing congestive heart failure Received Lasix IV 80mg, than oral lasix Starting on home diuresis bumetanide 2mg last night Diuresis well, negative for 13L Advised pt to resume his bumetanide tonight case discussed with cardiology and agreed with the plan He will follow with [facility] cardiology within 1 week ECHO showed * Ejection Fraction = 55-60%. * There is mild concentric left ventricular hypertrophy. * The base and mid inferior wall is hypokinetic. * The aortic valve is poorly visualized and moderately calcified. * Moderate to severe valvular aortic stenosis. * There is mild mitral regurgitation. * There is mild tricuspid regurgitation. CORONARY ARTERY DISEASE Denies any chest pain Serum troponin peak to 0.060 now trending down to normal, possible related to CHF Recent ECHO showed base and mid inferior wall is hypokinetic. ECHO done at [facility] last weeks showed normal left ventricle wall motion and wall thickness with normal EF Continue aspirin, clopidogrel, carvedilol, nitrates, statin. Continue monitor in tele ARRHYTHMIA EKG showed possible Mobitz type 1 heart block. Continue monitor on telemetry. On carvedilol Stable HYPERTENSION BP stable Continue carvedilol, lisinopril, hydralazine, nitrates. INFLUENZA B Was treating at [facility] last week with Tamiflu Continue droplet precaution Stable CKD III Creatine baseline as per discharge Summary from [facility] btw 1.8 to 2.2 I called his PCP office his last creatine back in February was 1.5 Creatine on admission 1.91 Creatine improved to 1.3 Continue avoiding nephrotoxic agents Monitor BMP WEAKNESS Due to acute illness Urine cx no growth blood cx no growth Fall precaution DM TYPE 2 Recent Hba1c 8.7 On insulin sliding scale and lantus Pharmacy consulted for glycemic management Continue monitor BS HYPOTHYROIDISM Continue levothyroxine. DYSLIPIDEMIA LDL 73 Continue atorvastatin. GOUT Continue allopurinol. RA / CHRONIC STEROID THERAPY Has been on chronic prednisone for many years. Apparently instructed to stop prednisone when discharged at [facility] Received Hydrocortisone x1 Continue prednisone VENOUS STASIS ULCERS RLE No apparent cellulitis. Local care / dressing changes. HISTORY MRSA Contact precautions. RESUSCITATION STATUS FULL CODE VTE PROPHYLAXIS SQ enoxaparin. DISPOSITION Discharge home today Follow up with PCP at [facility]. Follow up with [facility] Total time spent on discharge = 35 minutes This includes examination of the patient, discharge planning, medication reconciliation, and communication with other providers. Discharge Instructions Discharge Instructions Date of Service May 17, 2017. Admission Reason for Admission: Acute Chf Discharge Discharge Diagnosis / Problem: Acute decompensated Heart Failure, CORONARY ARTERY DISEASE Discharge Goals Goal(s): Decrease discomfort, Improve function, Improve disease control Activity Recommendations Activity Limitations: resume your previous activity (as tolerated) . Instructions / Follow-Up Instructions / Follow-Up Discharge home with home health services Follow up with your primary care provider at [facility] ( Please call to schedule appointment within 1 week) Follow up with your cardiology at [place] ( Please call to schedule appointment within 1 week) Follow a low salt diet Prednisone decreased to 5 mg daily Continue monitor blood sugar Check BMP in 1 week to monitor electrolytes and kidney function Fall precaution Physical therapy Call your Primary Care doctor if any of the following symptoms or problems start or get worse: * Shortness of breath or difficulty breathing * Wake up at night short of breath * Chest pain * Cough * Swelling of your hands, feet, or legs * More fatigued or tired with your normal activity * Palpitations - sudden fast heart beats WEIGHT * Weigh yourself every morning after using the bathroom. * Use the same scale. * Wear the same amount of clothing. * Write your weight down on a chart. * Call your Primary Care doctor if you gain more than 2-3 pounds in 1-2 days. MEDICATIONS * Use this discharge instruction sheet for medication instructions. * Take your medications at the time your doctor ordered. * Do not skip a dose of your medicines. * If you miss a dose of medicine, take it as soon as possible, but DO NOT DOUBLE A DOSE. * Read your medicine information when you get home. * Know all of the side effects of your medicine. If in doubt, ask your pharmacist * Call your Primary Care doctor's office if you have any side effects. * Be sure all of your doctors know what medicine and herbs you take (including cold, flu, and herbal medicine). Take the following with you to your follow-up doctor appointments: * Weight Chart * Medication List * List of questions Do not drink excessive alcohol, beer or wine. Current Hospital Diet Patient's current hospital diet: AHA Diet (Heart Healthy), Diabetes Type 2 Diet Discharge Diet Recommended Diet: AHA Diet (Heart Healthy), Low Sodium Diet (2gm Na), Diabetes Type 2 Diet Pending Studies Studies pending at discharge: no Laboratory Results Hemoglobin A1c Test 05/12/17 05:41 Range/Units Estimated Average Glucose 203 mg/dl Hemoglobin A1c 8.7 H 4.5-5.6 % Lipid Panel Test 05/12/17 05:41 Range/Units Triglycerides Level 205 H 0-150 mg/dl Cholesterol Level 136 0-200 mg/dl HDL Cholesterol 22 mg/dl Cholesterol/HDL Ratio 6.2 LDL Cholesterol, Calculated 73 mg/dl Medical Emergencies . Who to Call and When: Call 911 or go to the Emergency Room if: * If at any time you feel your situation is an emergency * You have tightness or pain in your chest that does not go away with rest or Nitroglycerin * You are very short of breath even with rest . Non-Emergent Contact Non-Emergency issues call your: Primary Care Provider, Business Transformation Manager Call Non-Emergent contact if: you have any medication questions . . "Provider Documentation" section prepared by Chelle Irving. . VTE Core Measure Inpt VTE Proph given/why not?: Enoxaparin (Lovenox)SQ Additional Copies To Arturo Hawthorne M.D.
== END 2017-05-17 16:06 | disposition home health service (06) | DRG 293 ==
LOC: C.EDB 06:02 → C.MSICU 08:01 → UNDOADMIN 08:01 → EDBEDREQ 08:38 → ENRESERV 08:59 → C.2T 05-13 19:15 → C.MSICU 05-13 19:15
PROVIDERS: ADMIT Hospitalist; ATTEND Internal Medicine
PROC: 0T9B70Z Drainage of Bladder with Drainage Device, Via Natural or Artificial Opening (ICD-10-PCS; principal; 2017-05-11)
PROC: 05HD33Z Insertion of Infusion Device into Right Cephalic Vein, Percutaneous Approach (ICD-10-PCS; principal; 2017-05-11)
DX: I13.0 Hypertensive heart and chronic kidney disease with heart failure and stage 1 through stage 4 chronic kidney disease, or unspecified chronic kidney disease (principal); I50.9 Heart failure, unspecified; I25.10 Atherosclerotic heart disease of native coronary artery without angina pectoris; I44.1 Atrioventricular block, second degree; J10.1 Influenza due to other identified influenza virus with other respiratory manifestations; N18.3 Chronic kidney disease, stage 3 (moderate); E11.22 Type 2 diabetes mellitus with diabetic chronic kidney disease; E11.51 Type 2 diabetes mellitus with diabetic peripheral angiopathy without gangrene; E03.9 Hypothyroidism, unspecified; E78.5 Hyperlipidemia, unspecified; M10.9 Gout, unspecified; M06.9 Rheumatoid arthritis, unspecified; K21.9 Gastro-esophageal reflux disease without esophagitis; I83.019 Varicose veins of right lower extremity with ulcer of unspecified site; I35.0 Nonrheumatic aortic (valve) stenosis; I25.2 Old myocardial infarction; Z95.5 Presence of coronary angioplasty implant and graft; Z86.14 Personal history of Methicillin resistant Staphylococcus aureus infection; Z87.11 Personal history of peptic ulcer disease; Z87.442 Personal history of urinary calculi; Z87.891 Personal history of nicotine dependence; Z89.612 Acquired absence of left leg above knee; Z89.421 Acquired absence of other right toe(s); Z90.49 Acquired absence of other specified parts of digestive tract; Z79.02 Long term (current) use of antithrombotics/antiplatelets; Z79.4 Long term (current) use of insulin; Z79.52 Long term (current) use of systemic steroids; Z79.82 Long term (current) use of aspirin; Z79.899 Other long term (current) drug therapy; Z88.0 Allergy status to penicillin; Z88.1 Allergy status to other antibiotic agents; Z88.8 Allergy status to other drugs, medicaments and biological substances; Z83.3 Family history of diabetes mellitus